=== PATIENT | female | born 1940 | race Caucasian/White ===

== ENCOUNTER → 2016-06-25 | Outpatient (CLI) | payer MEDICARE ==
--- NOTE | 2016-06-25 15:23 | US ---
EXAMINATION TYPE: US venous doppler duplex LE RT DATE OF EXAM: 06/25/2016 3:00 PM COMPARISON: Right lower extremity venous ultrasound June 07, 2015. 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 SIDE PERFORMED: Right TECHNIQUE: The lower extremity deep venous system is examined utilizing real time linear array sonog floresita with graded compression, doppler sonography and color-flow sonography. VESSELS IMAGED: External Iliac Vein (EIV) Common Femoral Vein Deep Femoral Vein Greater Saphenous Vein * Femoral Vein Popliteal Vein Small Saphenous Vein * Proximal Calf Veins (* superficial vessels) There appears to be chronic DVT from the proximal femoral v through the proximal calf v's. No flow se en in femoral v, thready flow seen in popliteal v and calf v. IMPRESSION: There is persistent significant thrombus in the right lower extremity favored chronic. Fi nding is improved from prior exam.
== END ==
LOC: RADUSWWP 14:31
PROVIDERS: ATTEND Internal Medicine Geriatric Medicine
DX: I82.501 Chronic embolism and thrombosis of unspecified deep veins of right lower extremity (principal)

== ENCOUNTER → 2016-12-16 | Outpatient (CLI) | payer MEDICARE ==
--- NOTE | 2016-12-16 15:23 | US ---
EXAMINATION TYPE: US venous doppler duplex LE RT DATE OF EXAM: 12/16/2016 2:51 PM COMPARISON: Right lower extremity venous ultrasound June 25, 2016 CLINICAL HISTORY: I82.409 ACUTE DVT OF LEG. Patient has h/o dvt in right leg and is currently on thin ners, pain behind knee SIDE PERFORMED: Right TECHNIQUE: The lower extremity deep venous system is examined utilizing real time linear array sonog floresita with graded compression, doppler sonography and color-flow sonography. VESSELS IMAGED: External Iliac Vein (EIV) Common Femoral Vein Deep Femoral Vein Greater Saphenous Vein * Femoral Vein Popliteal Vein Small Saphenous Vein * Proximal Calf Veins (* superficial vessels) Right Leg: Appears to have chronic within femoral vein , with thready flow seen and vessel not fully compressible, but no appearance of acute today no Cramer cyst seen today as noted previously, varicose vessel was noted within pop fossa IMPRESSION: There is persistent chronic thrombus in the superficial femoral vein with slight recanali zation since prior study. No popliteal cyst identified on current study.
== END | disposition home or self-care (01) ==
LOC: RADUSWWP 14:11
PROVIDERS: ATTEND Internal Medicine Geriatric Medicine
DX: I82.511 Chronic embolism and thrombosis of right femoral vein (principal)

== ENCOUNTER → 2017-07-22 | Outpatient (CLI) | payer MEDICARE ==
--- NOTE | 2017-07-22 16:30 | BD ---
EXAMINATION TYPE: MG DEXA axial skeleton. DATE OF EXAM: 07/22/2017 COMPARISON: NONE CLINICAL HISTORY: 77-year-old female osteoporosis Height: 5 FT 2 IN Weight: 246 FRAX RISK QUESTIONS: Secondary Osteoporosis: 3. Menopause before 45: YES RISK FACTORS HISTORY OF: Active: YES Postmenopausal woman: AGE 46 MEDICATIONS: Thyroid Medications: YES Which medication: SYNTHROID How Lon YEARS Additional Medications: SYNTHROID, LOSARTIN, XARELTO, LOVASTATIN, ATENOLOL, Additional History: EXAM MEASUREMENTS: Bone mineral densitometry was performed using the [employer] System. Bone mineral density as measured about the Lumbar spine is: ----- L1-L4(G/cm2): 1.385 T Score Values are as follows: ----- L2: 1.0 ----- L3: 2.7 ----- L4: 1.9 ----- L1-L4: 1.7 Bone mineral density has: INCREASED 2.4 % since study of: 2013 Bone mineral density about the R hip (g/cm2): 0.878 Bone mineral density about the L hip (g/cm2): 0.860 T Score values are as follows: -----R Neck: -1.1 -----L Neck: -1.3 -----R Total: -0.4 -----L Total: -0.1 Bone mineral density has: DECREASED -2.7 % since study of: 2013 IMPRESSION: Osteopenia (T Score between -2.5 and -1). There is slightly increased risk of fracture and the patient may be considered for treatment. Re-Screen 2-5 years. NOTE: T-SCORE=SD OF THE YOUNG ADULT MEAN.
--- NOTE | 2017-07-23 11:02 | MM ---
Reason for exam: screening (asymptomatic). Last mammogram was performed 2 years and 2 months ago. History: Patient is postmenopausal and has history of endometrial cancer at age 69. Family history of breast cancer in 3 sisters at age 50 and breast cancer in mother at age 50. Physical Findings: A clinical breast exam by your physician is recommended on an annual basis and results should be correlated with mammographic findings. MG 3D Screening Mammo W/Cad Bilateral CC and MLO view(s) were taken. Prior study comparison: May 16, 2015, bilateral MG screening mammo w CAD. May 11, 2014, bilateral MG screening mammo w CAD. There is a stable right central anterior depth mass back to 2014. No suspicious abnormality. No significant changes when compared with prior studies. ASSESSMENT: Benign, BI-RAD 2 RECOMMENDATION: Routine screening mammogram of both breasts in 1 year.
== END ==
LOC: RADMAMWWP 14:04
PROVIDERS: ATTEND Internal Medicine Geriatric Medicine
DX: Z12.31 Encounter for screening mammogram for malignant neoplasm of breast (principal); M81.0 Age-related osteoporosis without current pathological fracture; M85.80 Other specified disorders of bone density and structure, unspecified site
CPT/HCPCS: 77063; 77067; 77080

== ENCOUNTER 2017-09-22 21:45 | Emergency (ER) | payer MEDICARE ==
[2017-09-22 22:13] VITALS: BP 201/98; PULSE 53; RESP 18; TEMP 98.3
[2017-09-22] MEDS ORDERED: LIDOCAINE 1%/EPI 1:200,000 MPF 10 ML VIAL SQ STA (22:49)
[2017-09-22] MEDS ORDERED: GELATIN SPONGE,ABSORB (SMALL) 1 EACH SPONGE TOPICAL STA (22:50)
[2017-09-22] MEDS ORDERED: LIDOCAINE 1%-EPI 1:100,000 30 ML VIAL SQ STA (22:58)
--- NOTE | 2017-09-22 23:03 | ED ---
Skin/Abscess/FB HPI - General Chief complaint: Skin/Abscess/Foreign Body Stated complaint: Post OP /Bleeding/On blood thinner Time Seen by Provider: 09/22/17 22:26 Source: patient, RN notes reviewed Mode of arrival: ambulatory Limitations: no limitations - History of Present Illness Initial comments: This is a 77-year-old female who presents to the emergency department with chief complaint of postoperative bleeding. 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 She states that this was done by a barrel and receiver aligner , She states that at 9 PM this evening she noticed that she was bleeding through one of her dressings. Patient is concerned because she is on his rolled to 20 mg daily. She states that she did not take the medication yesterday or today. On arrival to the emergency department, a pressure dressing was placed. Denies fever, chills, chest pain, shortness of breath, abdominal pain, nausea or vomiting, constipation or diarrhea, dysuria or hematuria, numbness or tingling, headache or vision changes. - Related Data Home Medications Medication Instructions Recorded Confirmed Atenolol 50 mg PO HS 06/07/15 03/04/16 Levothyroxine Sodium [Synthroid] 50 mcg PO QAM 06/07/15 03/04/16 Losartan Potassium 100 mg PO QAM 06/07/15 03/04/16 Lovastatin [Mevacor] 20 mg PO HS 02/29/16 03/04/16 Rivaroxaban [Xarelto] 20 mg PO BID 03/04/16 03/04/16 Allergies Allergy/AdvReac Type Severity Reaction Status Date / Time No Known Allergies Allergy Verified 09/22/17 22:13 Review of Systems ROS Statement: Those systems with pertinent positive or pertinent negative responses have been documented in the HPI. ROS Other: All systems not noted in ROS Statement are negative. Past Medical History Past Medical History: Coronary Artery Disease (CAD), Cancer, Deep Vein Thrombosis (DVT), Eye Disorder, GERD/Reflux, Hyperlipidemia, Hypertension, Thyroid Disorder Additional Past Medical History / Comment(s): STATES FAMILY HEREDITARY DVT HX, uterine cancer 2009,hemorroids,dvt after hysterectomy,basal cell skin ca, psoriasis, shingles >10 years ago, hx of lymphedema post op, eneida cataracts History of Any Multi-Drug Resistant Organisms: None Reported Past Surgical History: Coronary Bypass/CABG, Heart Catheterization, Hysterectomy , Tubal Ligation Additional Past Surgical History / Comment(s): 2 vessel bypass,pilonidal cyst removed, pt stated had lymph node removed w/hysterectomy, dental implants rt lower side. Past Anesthesia/Blood Transfusion Reactions: No Reported Reaction Past Psychological History: No Psychological Hx Reported Smoking Status: Never smoker - Past Family History Mother Family Medical History: Cancer, Congestive Heart Failure (CHF), Deep Vein Thrombosis (DVT), Myocardial Infarction ([place]) Additional Family Medical History / Comment(s): breast cancer Father Family Medical History: Coronary Artery Disease (CAD), Myocardial Infarction ([place] ) Sister(s) Family Medical History: Cancer, Deep Vein Thrombosis (DVT) Additional Family Medical History / Comment(s): breast cancer X3 SISTERS, Brother(s) Family Medical History: Neurologic Disorder Daughter(s) Family Medical History: No Reported History Son(s) Family Medical History: No Reported History Additional Family Medical History / Comment(s): nephew in high school from General Exam - General Exam Comments Initial Comments: General: Awake and alert, well-developed; in no apparent distress. HEENT: Head atraumatic, normocephalic. Pupils are equal, round and reactive to light. Extraocular movements intact. Oropharynx moist without erythema or exudate. Neck: Supple. Normal ROM. Cardiovascular: Regular rate and rhythm. No murmurs, rubs or gallops. Chest symmetrical. Respiratory: Lungs clear to auscultation bilaterally. No wheezes, rales or rhonchi. Normal respiratory effort with no use of accessory muscles. Musculoskeletal: Normal ROM, no tenderness bilateral upper and lower extremities. Ambulating normally. Skin: Approximately 6.0 cm in length excisional site on the mid dorsal left forearm with intact sutures. At the most proximal end there is active bleeding. The second excisional site is covered with a dressing and there is no bleeding. Sensation is intact. Radial pulses are 2+ equal and palpable bilaterally. Neurological: Alert and oriented x3. CN II-XII grossly intact. Speech is fluent and answers are appropriate. No focal neuro deficits. Psychiatric: Normal mood and affect. No overt signs of depression or anxiety noted. Limitations: no limitations Course Vital Signs 09/22/17 22:10 Temperature 98.3 F Pulse Rate 53 L Respiratory 18 Rate Blood Pressure 201/98 O2 Sat by Pulse 99 Oximetry Medical Decision Making - Medical Decision Making This is a 77-year-old female who presented to the emergency department with chief complaint of postoperative bleeding. Patient had 2 squamous cell carcinoma excisions done by Dr. Langford earlier today. She noticed that she had bled through the dressing of one of the excisional sites at 9 PM this evening. Patient states that she is on Xarelto 20 mg but has not taken it for the past 2 days. A pressure dressing was applied when patient presented to the emergency department. This was removed and the repair was evaluated. There was active bleeding noted to the most proximal end of the excisional site repair. Lidocaine 1% with epi was injected into the site and Gelfoam was placed. A pressure dressing was placed. Patient no longer having active bleeding. Recommended the patient return to the emergency department if she does bleed through the dressing after discharge home. Recommended following up with her primary care provider and the barrel and receiver aligner who performed the procedure tomorrow. Patient's vital signs are stable and she is in no acute distress. She will be discharged home at this time. All questions were answered. This case was discussed with attending physician, Dr. Cifuentes. Disposition Clinical Impression: Postoperative bleeding from incision Disposition: HOME SELF-CARE Condition: Good Instructions: Postoperative Bleeding (ED) Additional Instructions: Please keep pressure dressing in place. Please return to the emergency department if you develop any further bleeding. Please follow up with Dr. Langford tomorrow morning. Please follow up with primary care provider within 1- 2 days. Return to emergency department if symptoms should worsen or any concerns arise. Is patient prescribed a controlled substance at d/c from ED?: No Referrals: Heri Zapata MD [Primary Care Provider] - 1-2 days Time of Disposition: 23:29
[2017-09-22] MEDS ORDERED: ACETAMINOPHEN TAB 500 MG TAB PO STA (23:15)
== END 2017-09-22 23:39 | disposition home or self-care (01) ==
LOC: EC 21:45
DX: L76.21 Postprocedural hemorrhage of skin and subcutaneous tissue following a dermatologic procedure (principal); I25.10 Atherosclerotic heart disease of native coronary artery without angina pectoris; E78.5 Hyperlipidemia, unspecified; I10 Essential (primary) hypertension; E07.9 Disorder of thyroid, unspecified; Z86.718 Personal history of other venous thrombosis and embolism; Z85.828 Personal history of other malignant neoplasm of skin; Z85.41 Personal history of malignant neoplasm of cervix uteri; Z95.1 Presence of aortocoronary bypass graft; Z98.890 Other specified postprocedural states; Z79.01 Long term (current) use of anticoagulants; Z79.899 Other long term (current) drug therapy
CPT/HCPCS: 99283

== ENCOUNTER 2017-10-01 22:43 | Inpatient (IN) | payer MEDICARE ==
[2017-10-01] MEDS ORDERED: ASPIRIN 81 MG PO STA (23:08)
[2017-10-01] MEDS ORDERED: SODIUM CHLORIDE 0.9% 500 ML IV STA (23:08)
[2017-10-01] MEDS ORDERED: HEPARIN SODIUM,PORCINE 5,000 UNIT/ML 1 ML VIAL IV STA (23:08)
[2017-10-01] MEDS ORDERED: DILTIAZEM DRIP BOLUS FROM BAG 1 MG SOLN IV ONE (23:09)
[2017-10-01] MEDS ORDERED: HEPARIN SOD,PORK IN 0.45% NACL 25,000 UNIT in 0.45% NACL 1 500ML.BAG IV SCH (23:15)
--- NOTE | 2017-10-01 23:15 | ED ---
General Adult HPI - General Chief complaint: Chest Pain Stated complaint: chest pain Source: patient Mode of arrival: wheelchair Limitations: no limitations - History of Present Illness Initial comments: Dictation was produced using [employer] dictation software. please excuse any grammatical, word or spelling errors. Chief Complaint: 77-year-old female with past medical history of coronary artery disease, dyslipidemia, the venous thrombosis presents with palpitations and chest pain. History of Present Illness: Patient reports that her symptoms began earlier today. She states that her symptoms began as palpitations that progressed chest pain. Patient denies any history of arrhythmia. Patient presents with who reports that they consume several wings and beer prior to coming to the hospital today. Patient reports that she is to take salt however. Secondary to a bleeding complication. The ROS documented in this emergency department record has been reviewed and confirmed by me. Those systems with pertinent positive or negative responses have been documented in the HPI. All other systems are other negative and/or noncontributory. - Related Data Home Medications Medication Instructions Recorded Confirmed Atenolol 50 mg PO HS 06/07/15 10/01/17 Levothyroxine Sodium [Synthroid] 50 mcg PO QAM 06/07/15 10/01/17 Losartan Potassium 100 mg PO QAM 06/07/15 10/01/17 Nitroglycerin Sl Tabs [Nitrostat] 0.4 mg SUBLINGUAL ONCE PRN 10/01/17 10/01/17 Allergies Allergy/AdvReac Type Severity Reaction Status Date / Time No Known Allergies Allergy Verified 10/01/17 23:04 Review of Systems ROS Statement: Those systems with pertinent positive or pertinent negative responses have been documented in the HPI. ROS Other: All systems not noted in ROS Statement are negative. Past Medical History Past Medical History: Coronary Artery Disease (CAD), Cancer, Deep Vein Thrombosis (DVT), Eye Disorder, GERD/Reflux, Hyperlipidemia, Hypertension, Thyroid Disorder Additional Past Medical History / Comment(s): STATES FAMILY HEREDITARY DVT HX, uterine cancer 2009,hemorroids,dvt after hysterectomy,basal cell skin ca, psoriasis, shingles >10 years ago, hx of lymphedema post op, eneida cataracts History of Any Multi-Drug Resistant Organisms: None Reported Past Surgical History: Coronary Bypass/CABG, Heart Catheterization, Hysterectomy , Tubal Ligation Additional Past Surgical History / Comment(s): 2 vessel bypass,pilonidal cyst removed, pt stated had lymph node removed w/hysterectomy, dental implants rt lower side. Past Anesthesia/Blood Transfusion Reactions: No Reported Reaction Past Psychological History: No Psychological Hx Reported Smoking Status: Never smoker - Past Family History Mother Family Medical History: Cancer, Congestive Heart Failure (CHF), Deep Vein Thrombosis (DVT), Myocardial Infarction ([place]) Additional Family Medical History / Comment(s): breast cancer Father Family Medical History: Coronary Artery Disease (CAD), Myocardial Infarction ([place] ) Sister(s) Family Medical History: Cancer, Deep Vein Thrombosis (DVT) Additional Family Medical History / Comment(s): breast cancer X3 SISTERS, Brother(s) Family Medical History: Neurologic Disorder Daughter(s) Family Medical History: No Reported History Son(s) Family Medical History: No Reported History Additional Family Medical History / Comment(s): nephew in high school from [place] General Exam - General Exam Comments Initial Comments: PHYSICAL EXAM: General Impression: Alert and oriented x3, not in acute distress HEENT: Normocephalic atraumatic, extra-ocular movements intact, pupils equal and reactive to light bilaterally, mucous membranes moist. Cardiovascular: Irregularly irregular rhythm Chest: Lungs clear to auscultation bilaterally, no rhonchi, no wheeze, no rales Abdomen: Bowel sounds present, abdomen soft, non-tender, non-distended, no organomegaly Musculoskeletal: Pulses present and equal in all extremities, no peripheral edema Motor: Power 5/5 bilaterally, no focal deficits noted Neurological: CN II-XII grossly intact, no focal motor or sensory deficits noted Skin: Intact with no visualized rashes Psych: Normal affect and mood Limitations: no limitations Course Vital Signs 10/01/17 10/01/17 10/01/17 22:48 23:03 23:39 Temperature 97.9 F Pulse Rate 65 94 Pulse Rate [ 105 H Train Dispatcher ] Respiratory 18 20 Rate Blood Pressure 148/91 142/73 O2 Sat by Pulse 98 98 Oximetry Medical Decision Making - Medical Decision Making ED course: 77 year old female with past medical history coronary artery disease presents with atrial fibrillation with rapid ventricular rate. Vital signs upon arrival shows blood pressure 148/91. Heart rate is 105. EKG is obtained showing A. fib with rapid ventricular rate. There is mild ischemic changes noted on EKG secondary to demand ischemia. Laboratory evaluation obtained. CBC unremarkable. Coag panel unremarkable. Metabolic panel shows mild elevated BUNs and a glucose of 110. Patient started on Cardizem and heparin. It isn't entirely clear when patient's symptoms began however likely that it started within 48 hours. Discussed patient case with primary care physician is willing to accept admission. Patient given aspirin. She'll be dispositioned to selective care. EKG Interpretation: A 12 lead EKG was obtained. It was interpreted by myself and attending physician. There is a P wave before every QRS complex. Rate is 138. Rhythm is A. fib with rapid ventricular rate, QRS 88, QTc 509. QT is not prolonged. No ST segment depression or elevation. Overall, this EKG is unremarkable - Lab Data Result diagrams: 10/01/17 22:58 10/01/17 22:58 Lab Results 10/01/17 10/01/17 10/01/17 Range/Units 22:58 22:58 22:58 WBC 7.6 (3.8-10.6) k/uL RBC 4.56 (3.80-5.40) m/uL Hgb 13.9 (11.4-16.0) gm/dL Hct 42.7 (34.0-46.0) % MCV 93.5 (80.0-100.0) fL MCH 30.5 (25.0-35.0) pg MCHC 32.6 (31.0-37.0) g/dL RDW 13.6 (11.5-15.5) % Plt Count 216 (150-450) k/uL Neutrophils % 63 % Lymphocytes % 24 % Monocytes % 8 % Eosinophils % 3 % Basophils % 1 % Neutrophils # 4.8 (1.3-7.7) k/uL Lymphocytes # 1.8 (1.0-4.8) k/uL Monocytes # 0.6 (0-1.0) k/uL Eosinophils # 0.2 (0-0.7) k/uL Basophils # 0.1 (0-0.2) k/uL PT (9.0-12.0) sec INR (<1.2) APTT (22.0-30.0) sec Sodium 138 (137-145) mmol/L Potassium 3.9 (3.5-5.1) mmol/L Chloride 105 (98-107) mmol/L Carbon Dioxide 29 (22-30) mmol/L Anion Gap 4 mmol/L BUN 23 H (7-17) mg/dL Creatinine 1.00 (0.52-1.04) mg/dL Est GFR (CKD-EPI)AfAm 64 (>60 ml/min/1.73 sqM) Est GFR (CKD-EPI)NonAf 55 (>60 ml/min/1.73 sqM) Glucose 110 H (74-99) mg/dL Calcium 9.4 (8.4-10.2) mg/dL Magnesium 2.0 (1.6-2.3) mg/dL Total Bilirubin 0.4 (0.2-1.3) mg/dL AST 26 (14-36) U/L ALT 29 (9-52) U/L Alkaline Phosphatase 62 (38-126) U/L Total Creatine Kinase 47 (30-135) U/L CK-MB (CK-2) 0.4 (0.0-2.4) ng/mL CK-MB (CK-2) Rel Index 0.9 Troponin I <0.012 (0.000-0.034) ng/mL Total Protein 6.2 L (6.3-8.2) g/dL Albumin 3.6 (3.5-5.0) g/dL 10/01/17 Range/Units 22:58 WBC (3.8-10.6) k/uL RBC (3.80-5.40) m/uL Hgb (11.4-16.0) gm/dL Hct (34.0-46.0) % MCV (80.0-100.0) fL MCH (25.0-35.0) pg MCHC (31.0-37.0) g/dL RDW (11.5-15.5) % Plt Count (150-450) k/uL Neutrophils % % Lymphocytes % % Monocytes % % Eosinophils % % Basophils % % Neutrophils # (1.3-7.7) k/uL Lymphocytes # (1.0-4.8) k/uL Monocytes # (0-1.0) k/uL Eosinophils # (0-0.7) k/uL Basophils # (0-0.2) k/uL PT 9.6 (9.0-12.0) sec INR 1.0 (<1.2) APTT 22.1 (22.0-30.0) sec Sodium (137-145) mmol/L Potassium (3.5-5.1) mmol/L Chloride (98-107) mmol/L Carbon Dioxide (22-30) mmol/L Anion Gap mmol/L BUN (7-17) mg/dL Creatinine (0.52-1.04) mg/dL Est GFR (CKD-EPI)AfAm (>60 ml/min/1.73 sqM) Est GFR (CKD-EPI)NonAf (>60 ml/min/1.73 sqM) Glucose (74-99) mg/dL Calcium (8.4-10.2) mg/dL Magnesium (1.6-2.3) mg/dL Total Bilirubin (0.2-1.3) mg/dL AST (14-36) U/L ALT (9-52) U/L Alkaline Phosphatase (38-126) U/L Total Creatine Kinase (30-135) U/L CK-MB (CK-2) (0.0-2.4) ng/mL CK-MB (CK-2) Rel Index Troponin I (0.000-0.034) ng/mL Total Protein (6.3-8.2) g/dL Albumin (3.5-5.0) g/dL Disposition Clinical Impression: Atrial fibrillation with rapid ventricular response Disposition: ADMITTED IP TO THIS [facility] Condition: Fair Referrals: Heri Zapata MD [Primary Care Provider] - 1-2 days Decision Time: 00:23
[2017-10-01 23:17] LABS: Basophils # (A) 0.1 k/uL (0-0.2); Basophils % (A) 1 %; Eosinophils # (A) 0.2 k/uL (0-0.7); Eosinophils % (A) 3 %; HCT 42.7 % (34.0-46.0); HGB 13.9 gm/dL (11.4-16.0); Lymphocytes # (A) 1.8 k/uL (1.0-4.8); Lymphocytes % (A) 24 %; MCH 30.5 pg (25.0-35.0); MCHC 32.6 g/dL (31.0-37.0); MCV 93.5 fL (80.0-100.0); Mean Platelet Volume 7.2; Monocytes # (A) 0.6 k/uL (0-1.0); Monocytes % (A) 8 %; Neutrophils # (A) 4.8 k/uL (1.3-7.7); Neutrophils % (A) 63 %; Platelet Count 216 k/uL (150-450); RBC 4.56 m/uL (3.80-5.40); RDW 13.6 % (11.5-15.5); WBC 7.6 k/uL (3.8-10.6)
[2017-10-01 23:25] LABS: Partial Thromboplastin Time 22.1 sec (22.0-30.0); Prothrombin Time 9.6 sec (9.0-12.0)
[2017-10-01 23:26] LABS: Albumin 3.6 g/dL (3.5-5.0); Calcium 9.4 mg/dL (8.4-10.2); Potassium 3.9 mmol/L (3.5-5.1); Total Bilirubin 0.4 mg/dL (0.2-1.3); Total Protein 6.2 g/dL (6.3-8.2)
[2017-10-01 23:29] LABS: Creatine Kinase 47 U/L (30-135)
[2017-10-01] MEDS: DILTIAZEM 50 MG in SODIUM CHLORIDE 0.9% 40 ML IV SCH (23:35)
[2017-10-01 23:42] LABS: Creatine Kinase MB 0.4 ng/mL (0.0-2.4); Troponin I <0.012 ng/mL (0.000-0.034)
[2017-10-02] MEDS ORDERED: NALOXONE 0.4 MG/ML 1 ML VIAL IV PRN (00:16)
--- NOTE | 2017-10-02 00:33 | XR ---
EXAMINATION TYPE: XR chest 2V DATE OF EXAM: 10/02/2017 COMPARISON: 02/26/2010 HISTORY: Chest pain TECHNIQUE: Frontal and lateral views of the chest are obtained. FINDINGS: There is no heart failure nor confluent pneumonic infiltrate. Costophrenic angles are yissel r. There are sternal wires. There are chest leads. IMPRESSION: No active cardiopulmonary disease. No change.
[2017-10-02 01:10] VITALS: BMI 45.4
[2017-10-02] MEDS: DILTIAZEM 50 MG in SODIUM CHLORIDE 0.9% 40 ML IV SCH (08:13)
[2017-10-02] MEDS: LEVOTHYROXINE 50 MCG TAB PO SCH (10:37)
[2017-10-02] MEDS: LOSARTAN 50 MG TAB PO SCH (10:37)
--- NOTE | 2017-10-02 11:19 | ECHOF ---
Referral Reason:AF w/RVR MEASUREMENTS -------- HEIGHT: 157.5 cm WEIGHT: 112.5 kg BP: 142/85 RVIDd: 3.0 cm (< 3.3) IVSd: 1.0 cm (0.6 - 1.1) LVIDd: 4.9 cm (3.9 - 5.3) LVPWd: 0.9 cm (0.6 - 1.1) IVSs: 1.6 cm LVIDs: 2.6 cm LVPWs: 1.6 cm LAESV Index (A-L): 30.86 ml/m Ao Diam: 3.0 cm (2.0 - 3.7) AV Cusp: 2.0 cm (1.5 - 2.6) LA Diam: 4.6 cm (2.7 - 3.8) EPSS: 0.3 cm MV E Britton: 1.35 m/s MV DecT: 179 ms MV A Britton: 0.33 m/s MV E/A Ratio: 4.03 RAP: 5.00 mmHg RVSP: 44.61 mmHg MV EF SLOPE: 145.00 mm/s (70 - 150) MV EXCURSION: 1.87 cm (> 18.000) FINDINGS -------- Resting bradycardia (HR<60bpm). This was a technically adequate study. The left ventricular size is normal. Left ventricular wall thickness is normal. Overall left vent ricular systolic function is normal with, an EF between 55 - 60 %. The right ventricle is normal in size and function. LA is midly dilated 29-33ml/m2. RA appears enlarged. Aortic valve is trileaflet and is mildly thickened. There is no evidence of aortic regurgitation. There is no evidence of aortic stenosis. Mild mitral annular calcification present. Mild mitral regurgitation is present. Wsby-jr-pxelrjqm tricuspid regurgitation present. There is mild pulmonary hypertension. The right ventricular systolic pressure, as measured by Doppler, is 44.61mmHg. Trace/mild (physiologic) pulmonic regurgitation. The aortic root size is normal. Normal inferior vena cava with normal inspiratory collapse consistent with estimated right atrial pre ssure of 5 mmHg. There is no pericardial effusion. CONCLUSIONS -------- 1. Resting bradycardia (HR<60bpm). 2. This was a technically adequate study. 3. The left ventricular size is normal. 4. Left ventricular wall thickness is normal. 5. Overall left ventricular systolic function is normal with, an EF between 55 - 60 %. 6. LA is midly dilated 29-33ml/m2. 7. RA appears enlarged. 8. Aortic valve is trileaflet and is mildly thickened. 9. Mild mitral annular calcification present. 10. Mild mitral regurgitation is present. 11. Hvri-rg-zrafzise tricuspid regurgitation present. 12. There is mild pulmonary hypertension. 13. The right ventricular systolic pressure, as measured by Doppler, is 44.61mmHg. 14. Trace/mild (physiologic) pulmonic regurgitation. 15. The aortic root size is normal. 16. There is no pericardial effusion. FIELD INSTALLER: Jose Daniel Haas RDCS
--- NOTE | 2017-10-02 11:38 | P.CRDCN ---
History of Present Illness Consult date: 10/02/17 Requesting physician: Heri Zapata Reason for Consult (text): AF w/RVR Chief complaint: palpitations, chest discomfort History of present illness: This is a pleasant 77-year-old female patient who follows with Dr. BIN Aguirre in the office. She has a history of hypertension, dyslipidemia, recurrent DVTs and was previously on Xarelto, previous CABG with a vein graft to the diagonal and GUILLEN to the LAD. Most recent cardiac catheterization from February 2016 showed a right dominant system free of significant disease, left main free of significant disease, circumflex free of significant disease with a totally occluded LAD and diagonal with widely pain vein grafts to the diagonal and GUILLEN to the LAD. Presented to the emergency department with complaints of palpitations that resulted in chest discomfort. She felt her heart racing and noticed some shortness of breath as well. EKG on admission showed atrial fibrillation with rapid ventricular response, PVCs and diffuse ST-T wave abnormalities. According to the patient she was previously on anticoagulation which she stopped following skin cancer removal from her left forearm. Apparently she had some what she says was significant bleeding postoperatively. Laboratory values show a normal CBC, normal electrolytes, BUN 23 and creatinine of 1.0. Troponin was negative 1. Patient is currently in sinus bradycardia with heart rate in the 50s. Blood pressure is running 140s to 160s over 80s and 90s. Upon examination, patient is resting comfortably in bed. She denies further complaints of palpitations or chest discomfort. She denies current complaint of shortness of breath. Denies any dizziness, lightheadedness or syncope. She does feel she has some swelling in her feet. 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), psoriasis, shingles >10 years ago, hx of lymphedema post op, eneida cataracts History of Any Multi-Drug Resistant Organisms: None Reported Past Surgical History: Coronary Bypass/CABG, Heart Catheterization, Hysterectomy , Tubal Ligation Additional Past Surgical History / Comment(s): 2 vessel bypass 2004, pilonidal cyst removed, pt stated had lymph node removed w/hysterectomy, dental implants rt lower side Past Anesthesia/Blood Transfusion Reactions: No Reported Reaction Past Psychological History: No Psychological Hx Reported Smoking Status: Never smoker Past Alcohol Use History: Occasional Additional Past Alcohol Use History / Comment(s): DRINKS 1 BOTTLE OF WINE PER WEEK. Past Drug Use History: None Reported - Past Family History Mother Family Medical History: Cancer, Congestive Heart Failure (CHF), Deep Vein Thrombosis (DVT), Myocardial Infarction (CA) Additional Family Medical History / Comment(s): breast cancer Father Family Medical History: Coronary Artery Disease (CAD), Myocardial Infarction ([place] ) Sister(s) Family Medical History: Cancer, Deep Vein Thrombosis (DVT) Additional Family Medical History / Comment(s): breast cancer X3 SISTERS Brother(s) Family Medical History: Neurologic Disorder Daughter(s) Family Medical History: No Reported History Son(s) Family Medical History: No Reported History Additional Family Medical History / Comment(s): nephew in high school from [place] Medications and Allergies Home Medications Medication Instructions Recorded Confirmed Type Atenolol 50 mg PO HS 06/07/15 10/01/17 History Levothyroxine Sodium [Synthroid] 50 mcg PO QAM 06/07/15 10/01/17 History Losartan Potassium 100 mg PO QAM 06/07/15 10/01/17 History Nitroglycerin Sl Tabs [Nitrostat] 0.4 mg SUBLINGUAL ONCE PRN 10/01/17 10/01/17 History Allergies Allergy/AdvReac Type Severity Reaction Status Date / Time No Known Allergies Allergy Verified 10/01/17 23:04 Physical Exam Vitals: Vital Signs Temp Pulse Pulse Resp BP BP Pulse Ox 10/02/17 07:50 97.8 F 55 L 18 168/92 98 10/02/17 04:00 54 L 16 142/85 97 10/02/17 01:28 84 18 10/02/17 00:41 84 18 141/78 96 10/02/17 00:38 97.6 F 84 16 161/92 97 10/01/17 23:39 94 20 142/73 98 10/01/17 23:03 105 H 10/01/17 22:48 97.9 F 65 18 148/91 98 Intake and Output 10/01/17 10/02/17 10/02/17 22:59 06:59 14:59 Intake Total 754.772 0 Balance 754.772 0 Intake: Amount of Fluid Infused ( 600 ml) Intake, IV Titration 154.772 Amount Diltiazem 50 mg In Sodium 10.583 Chloride 0.9% 40 ml @ 5 MG/HR 5 mls/hr IV .Q10H ANDREW Rx#:[id number] Heparin Sod,Pork in 0.45% 144.189 NaCl 25,000 unit In 0.45 % NaCl 1 500ml.bag @ 9 UNITS/KG/HR 20.16 mls/hr IV .Q24H ANDREW Rx#: [id number] Oral 0 Other: Voiding Method Toilet # Voids 1 Weight 112.037 kg 112.7 kg PHYSICAL EXAMINATION: HEENT: Head is atraumatic, normocephalic. Pupils equal, round. Neck is supple. There is no elevated jugular venous pressure. HEART EXAMINATION: Heart sounds regular, S1 and S2 normal. No murmur or gallop heard. CHEST EXAMINATION: Lungs are clear to auscultation and precussion. No chest wall tenderness is noted on palpation or with deep breathing. ABDOMEN: Soft, obese, nontender. Bowel sounds are heard. No organomegaly noted. EXTREMITIES: 2+ peripheral pulses with no evidence of peripheral edema and no calf tenderness noted. Varicosities noted bilateral lower legs. NEUROLOGIC patient is awake, alert and oriented x3. . Results 10/01/17 22:58 10/01/17 22:58 Cardiac Enzymes 10/01/17 10/01/17 Range/Units 22:58 22:58 AST 26 (14-36) U/L CK-MB (CK-2) 0.4 (0.0-2.4) ng/mL Troponin I <0.012 (0.000-0.034) ng/mL Coagulation 10/01/17 10/02/17 Range/Units 22:58 06:18 PT 9.6 (9.0-12.0) sec APTT 22.1 39.3 H (22.0-30.0) sec CBC 10/01/17 Range/Units 22:58 WBC 7.6 (3.8-10.6) k/uL RBC 4.56 (3.80-5.40) m/uL Hgb 13.9 (11.4-16.0) gm/dL Hct 42.7 (34.0-46.0) % Plt Count 216 (150-450) k/uL Comprehensive Metabolic Panel 10/01/17 Range/Units 22:58 Sodium 138 (137-145) mmol/L Potassium 3.9 (3.5-5.1) mmol/L Chloride 105 (98-107) mmol/L Carbon Dioxide 29 (22-30) mmol/L BUN 23 H (7-17) mg/dL Creatinine 1.00 (0.52-1.04) mg/dL Glucose 110 H (74-99) mg/dL Calcium 9.4 (8.4-10.2) mg/dL AST 26 (14-36) U/L ALT 29 (9-52) U/L Alkaline Phosphatase 62 (38-126) U/L Total Protein 6.2 L (6.3-8.2) g/dL Albumin 3.6 (3.5-5.0) g/dL Current Medications Generic Name Dose Route Start Last Admin Trade Name Freq PRN Reason Stop Dose Admin Heparin Sodium/Sodium Chloride 500 mls @ 20.16 mls/hr 10/01/17 23:15 06:43 25,000 unit/ Sodium Chloride IV 12 units/kg/hr .Q24H ANDREW 26.88 mls/hr Titration Protocol 9 UNITS/KG/HR Diltiazem HCl 50 mg/ Sodium 50 mls @ 5 mls/hr 10/01/17 23:15 10/02/17 08:13 Chloride IV Not Given .Q10H ANDREW 5 MG/HR Naloxone HCl 0.2 mg 10/02/17 00:16 Narcan IV Q2M PRN Opioid Reversal Intake and Output 10/01/17 10/02/17 10/02/17 22:59 06:59 14:59 Intake Total 754.772 0 Balance 754.772 0 Intake: Amount of Fluid Infused ( 600 ml) Intake, IV Titration 154.772 Amount Diltiazem 50 mg In Sodium 10.583 Chloride 0.9% 40 ml @ 5 MG/HR 5 mls/hr IV .Q10H ANDREW Rx#:[id number] Heparin Sod,Pork in 0.45% 144.189 NaCl 25,000 unit In 0.45 % NaCl 1 500ml.bag @ 9 UNITS/KG/HR 20.16 mls/hr IV .Q24H ANDREW Rx#: [id number] Oral 0 Other: Voiding Method Toilet # Voids 1 Weight 112.037 kg 112.7 kg 10/01/17 22:58 10/01/17 22:58 EKG Interpretations (text) Initial EKG showed atrial fibrillation with rapid ventricular response with PVCs and diffuse ST-T wave abnormalities subsequent EKG showed sinus bradycardia with nonspecific ST abnormalities Assessment and Plan Assessment: #1 paroxysmal atrial fibrillation with rapid ventricular response, currently maintaining sinus rhythm #2 recurrent DVTs previously on Xarelto which she stopped on September 22 #3 coronary artery disease with previous CABG and clear cath in 2016 #4 dyslipidemia #5 hypertension #6 gastroesophageal reflux disease #7 skin cancer with recent resection Plan: From rehabilitation supervisor perspective, we will obtain a 2-D echo with Doppler. We will likely resume Xarelto. We will resume losartan 100 mg by mouth daily, Levothyroxine 50 g by mouth daily, atenolol 50 mg by mouth daily at bedtime. We will obtain a TSH. Depending on results of echo patient may be able to be discharged today and follow-up with Dr. BIN Aguirre on October 17. VETERINARY PRACTITIONER note has been reviewed, I agree with a documented findings and plan of care. Patient was seen and examined.
[2017-10-02 12:10] LABS: T4, Free (Free Thyroxine) 1.31 ng/dL (0.78-2.19)
--- NOTE | 2017-10-02 13:31 | P.HPIM ---
History of Present Illness H&P Date: 10/02/17 Chief Complaint: A. fib with RVR, chest pain, CAD, history of DVT, hypertension , hyperlipide 77-year-old female with mild obesity who at seen in the office for the last few years who seen Dr. BIN iglesias cardiology in cardiology office on regular basis had history of hypertension, hyperlipidemia and recurrent DVT he has been on Xarelto for long time. Patient also had previous history of CAD post CABG of 2 vessel years ago had recent heart catheter back in February 2016 free from any significant blockage or disease. 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 Her symptoms were persistent ended up coming to the emergency department at [facility] her pulse rate through her heart monitor was running between 140 and 160 patient was diagnosed with A. fib with RVR was started on Cardizem drip and heparin drip and admitted to the hospital her CK with troponin was negative and patient has been on Xarelto all along until last week when developed to have slight with increased bleeding from the left arm through a smaller injury had to stop the medication for a few days. Review of Systems CONSTITUTIONAL: Well-developed no acute respiratory distress. EYES: No icterus sclerae, no conjunctivitis. EARS, NOSE, MOUTH, THROAT, and FACE: No sore throat, lymphadenopathy, carotid bruits or deformity. RESPIRATORY: Positive shortness of breath and dyspnea.. CARDIOVASCULAR: Positive chest pain, positive palpitation, positive shortness of breath and dyspnea. GASTROINTESTINAL: No Abd pain, Nausea or vomiting, no Diarrhea or constipation, No GI Bleed, no distention or masses. GENITOURINARY: Negative for Hematuria or UTI, no kidney stones. INTEGUMENT/BREAST: Negative for any muscular injury with mild osteoarthritis.. HEMATOLOGIC/LYMPHATIC: Negative for bleed or purpura. MUSCULOSKELTAL: Negative for Myalgia or arthralgia. NEURLOGICAL: No LOC, Sz or syncope, blurred vision dizziness or abnormality.. BEHAVIORAL/PSYCH: Negative. ENDOCRINE: Negative. 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), psoriasis, shingles >10 years ago, hx of lymphedema post op, eneida cataracts History of Any Multi-Drug Resistant Organisms: None Reported Past Surgical History: Coronary Bypass/CABG, Heart Catheterization, Hysterectomy , Tubal Ligation Additional Past Surgical History / Comment(s): 2 vessel bypass 2004, pilonidal cyst removed, pt stated had lymph node removed w/hysterectomy, dental implants rt lower side Past Anesthesia/Blood Transfusion Reactions: No Reported Reaction Past Psychological History: No Psychological Hx Reported Smoking Status: Never smoker Past Alcohol Use History: Occasional Additional Past Alcohol Use History / Comment(s): DRINKS 1 BOTTLE OF WINE PER WEEK. Past Drug Use History: None Reported - Past Family History Mother Family Medical History: Cancer, Congestive Heart Failure (CHF), Deep Vein Thrombosis (DVT), Myocardial Infarction ([place]) Additional Family Medical History / Comment(s): breast cancer Father Family Medical History: Coronary Artery Disease (CAD), Myocardial Infarction ([place] ) Sister(s) Family Medical History: Cancer, Deep Vein Thrombosis (DVT) Additional Family Medical History / Comment(s): breast cancer X3 SISTERS Brother(s) Family Medical History: Neurologic Disorder Daughter(s) Family Medical History: No Reported History Son(s) Family Medical History: No Reported History Additional Family Medical History / Comment(s): nephew in high school from [place] Medications and Allergies Home Medications Medication Instructions Recorded Confirmed Type Atenolol 50 mg PO HS 06/07/15 10/01/17 History Levothyroxine Sodium [Synthroid] 50 mcg PO QAM 06/07/15 10/01/17 History Losartan Potassium 100 mg PO QAM 06/07/15 10/01/17 History Nitroglycerin Sl Tabs [Nitrostat] 0.4 mg SUBLINGUAL ONCE PRN 10/01/17 10/01/17 History Allergies Allergy/AdvReac Type Severity Reaction Status Date / Time No Known Allergies Allergy Verified 10/01/17 23:04 Physical Exam Vitals: Vital Signs Temp Pulse Pulse Resp BP BP Pulse Ox 10/02/17 11:00 96.3 F L 57 L 18 175/87 97 10/02/17 07:50 97.8 F 55 L 18 168/92 98 10/02/17 04:00 54 L 16 142/85 97 10/02/17 01:28 84 18 10/02/17 00:41 84 18 141/78 96 10/02/17 00:38 97.6 F 84 16 161/92 97 10/01/17 23:39 94 20 142/73 98 10/01/17 23:03 105 H 10/01/17 22:48 97.9 F 65 18 148/91 98 Intake and Output 10/01/17 10/02/17 10/02/17 22:59 06:59 14:59 Intake Total 754.772 100 Balance 754.772 100 Intake: Amount of Fluid Infused ( 600 ml) Intake, IV Titration 154.772 100 Amount Diltiazem 50 mg In Sodium 10.583 Chloride 0.9% 40 ml @ 5 MG/HR 5 mls/hr IV .Q10H ANDREW Rx#:[id number] Heparin Sod,Pork in 0.45% 144.189 NaCl 25,000 unit In 0.45 % NaCl 1 500ml.bag @ 9 UNITS/KG/HR 20.16 mls/hr IV .Q24H ANDREW Rx#: [id number] Sodium Chloride 0.9% 500 100 ml @ 999 mls/hr IV .Q31M STA Rx#:[id number] Oral 0 Other: Voiding Method Toilet Toilet # Voids 1 Weight 112.037 kg 112.7 kg General Appearance: Alert, cooperative, no distress, appears stated age, obese. Neck HEENT: Supple, no lymphadenopathy, no thyroid enlargement, no carotid bruits. Lungs: Clear to auscultation without crackles or wheezes no rhonchi, no deformity. Chest Wall: Chest wall normal expansion with deep inspiration no tenderness and no deformity was found on exam, no costochondral pain or discomfort. Heart: Irregular rhythm and rate S1-S2 positive S3 +5 cm JVD with PVCs with systolic murmur.. Back: Symmetric, no curvature, ROM normal, no CVA tenderness. Abdomen: Soft, non-tender, bowel sounds active all four quadrants, no masses, no organomegaly. Extremities: Trace edema positive varicose vein with decreased pulse in both side. Pulses: 2+ and symmetric. Skin: Skin color, texture, tugor normal, no rashes or lesions. Neurologic: Alert oriented x3 cranial nerves II through XII intact, no motor deficit, no abnormal balance or gait. Results CBC & Chem 7: 10/01/17 22:58 10/01/17 22:58 Labs: Abnormal Lab Results - Last 24 Hours (Table) 10/01/17 10/02/17 10/02/17 Range/Units 22:58 06:18 06:18 APTT 39.3 H (22.0-30.0) sec BUN 23 H (7-17) mg/dL Glucose 110 H (74-99) mg/dL Total Protein 6.2 L (6.3-8.2) g/dL TSH 6.120 H (0.465-4.680) mIU/L Thrombosis Risk Factor Assmnt - DVT/VTE Prophylaxis DVT/VTE Prophylaxis: Pharmacologic Prophylaxis ordered, Mechanical Prophylaxis ordered - Choose All That Apply Any of the Below Risk Factors Present?: Yes Each Factor Represents 1 point: Medical pt on bed rest, Obesity (BMI >25), Swollen legs (current) Other Risk Factors: Yes Each Risk Factor Represents 3 Points: Age 75 years or older, Family history of DVT/PE, History of DVT/PE Other congenital or acquired thrombophilia - If yes, enter type in comment: No Thrombosis Risk Factor Assessment Total Risk Factor Score: 12 Thrombosis Risk Factor Assessment Level: High Risk Assessment and Plan Plan: 1 A. fib with RVR: Patient had Cardizem drip and back on anticoagulation, will consult cardiology, titrate her beta zaid slightly and if needed Cardizem orally can be done. If recurrent or not control with the current plan patient might benefit from amiodarone as a next step. 2 recurrent anginal chest pain: Have been on the peak time of her A. fib with RVR with the current symptoms patient CK with troponin 3 will be done, repeat EKG, echocardiogram, and consult cardiology despite the loss heart cath in 2016 was negative patient might benefit from going at least for nuclear stress test. 3 recurrent DVT: Patient is on Xarelto lifetime she stopped medication on September 22 because of the arm injury in the bleed medication will be start today. 4 Hypertension: Remain on losartan 100 mg a day and atenolol 50 mg atenolol might be up slightly to total of 75 mg a day. 5 hyperlipidemia: Has been off statin because of side effect. 6 hypothyroidism: Has been on levothyroxine 50 g daily continue medication. 7 DVT prophylaxis: Patient will be on Xarelto. 8 GI prophylaxis: We'll start patient on Pepcid 20 mg daily. CODE STATUS: Full code. Admit patient to inpatient status for more than 2 nights.
[2017-10-02] MEDS ORDERED: RIVAROXABAN 20 MG TAB PO SCH (17:30)
[2017-10-02 20:20] VITALS: RESP 16
[2017-10-02] MEDS ORDERED: ATENOLOL 50 MG TAB PO SCH (21:00)
[2017-10-03] MEDS: LEVOTHYROXINE 50 MCG TAB PO SCH (05:57)
[2017-10-03 06:27] LABS: Basophils # (A) 0.1 k/uL (0-0.2); Basophils % (A) 1 %; Eosinophils # (A) 0.2 k/uL (0-0.7); Eosinophils % (A) 3 %; HCT 40.7 % (34.0-46.0); HGB 13.1 gm/dL (11.4-16.0); Lymphocytes # (A) 1.2 k/uL (1.0-4.8); Lymphocytes % (A) 21 %; MCH 30.5 pg (25.0-35.0); MCHC 32.1 g/dL (31.0-37.0); MCV 94.9 fL (80.0-100.0); Mean Platelet Volume 7.5; Monocytes # (A) 0.5 k/uL (0-1.0); Monocytes % (A) 9 %; Neutrophils # (A) 3.5 k/uL (1.3-7.7); Neutrophils % (A) 64 %; Platelet Count 201 k/uL (150-450); RBC 4.28 m/uL (3.80-5.40); RDW 13.6 % (11.5-15.5); WBC 5.5 k/uL (3.8-10.6)
[2017-10-03 06:46] LABS: Potassium 4.2 mmol/L (3.5-5.1)
[2017-10-03] MEDS: LOSARTAN 50 MG TAB PO SCH (08:30)
[2017-10-03 11:06] VITALS: BP 155/86; PULSE 49; TEMP 98.4
--- NOTE | 2017-10-03 13:58 | P.DS ---
Providers Date of admission: 10/02/17 00:17 Expected date of discharge: 10/03/17 Attending physician: Heri Zapata Consults: 10/02/17 00:20 Consult Physician Routine Consulting Provider: Glenda Aguirre Consult Reason/Comments: afib rvr Do you want consulting provider notified?: Yes, Notify in am Primary care physician: [facility] Course: 77-year-old female with mild obesity who at seen in the office for the last few years who seen Dr. BIN iglesias cardiology in cardiology office on regular basis had history of hypertension, hyperlipidemia and recurrent DVT he has been on Xarelto for long time. Patient also had previous history of CAD post CABG of 2 vessel years ago had recent heart catheter back in February 2016 free from any significant blockage or disease. 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 Her symptoms were persistent ended up coming to the emergency department at [facility] her pulse rate through her heart monitor was running between 140 and 160 patient was diagnosed with A. fib with RVR was started on Cardizem drip and heparin drip and admitted to the hospital her CK with troponin was negative and patient has been on Xarelto all along until last week when developed to have slight with increased bleeding from the left arm through a smaller injury had to stop the medication for a few days. 10/03: Patient has been in a sinus bradycardia since shortly after admission. Cardizem drip was discontinued and patient was resumed back on atenolol. Echocardiogram reveals EF of 55-60%, LAD mildly dilated, mild mitral regurgitation, moderate tricuspid regurgitation, mild pulmonary hypertension. Cardiology is resume the patient back on Xarelto. Cardiology has cleared her for discharge with plan for follow-up with Dr. BIN iglesias on October 17. Discharge diagnoses: 1 A. fib with RVR with paroxysmal atrial fibrillation 2 recurrent anginal chest pain secondary to A. fib with RVR 3 recurrent DVT 4 Hypertension 5 hyperlipidemia 6 hypothyroidism Discharge plan: Return home Impression and plan of care have been directed as dictated by the signing physician. Kathleen Hollins nurse practitioner acting as scribe for signing physician. Patient Condition at Discharge: Good Plan - Discharge Summary Discharge Rx Participant: No New Discharge Prescriptions: New Atenolol [Tenormin] 50 mg PO HS #60 tab Rivaroxaban [Xarelto] 20 mg PO W/SUPPER #30 tab Continue Losartan Potassium 100 mg PO QAM Levothyroxine Sodium [Synthroid] 50 mcg PO QAM Nitroglycerin Sl Tabs [Nitrostat] 0.4 mg SUBLINGUAL ONCE PRN PRN Reason: Chest Pain Discontinued Atenolol 50 mg PO HS Discharge Medication List Levothyroxine Sodium [Synthroid] 50 mcg PO QAM 06/07/15 [History] Losartan Potassium 100 mg PO QAM 06/07/15 [History] Nitroglycerin Sl Tabs [Nitrostat] 0.4 mg SUBLINGUAL ONCE PRN 10/01/17 [History] Atenolol [Tenormin] 50 mg PO HS #60 tab 10/03/17 [Rx] Rivaroxaban [Xarelto] 20 mg PO W/SUPPER #30 tab 10/03/17 [Rx] Follow up Appointment(s)/Referral(s): Glenda Aguirre MD [STAFF PHYSICIAN] - 10/17/17 1:45 pm (Friday) Heri Zapata MD [Primary Care Provider] - 10/09/17 11:15 am () Patient Instructions/Handouts: A-fib (Atrial Fibrillation) (DC), Safe Use of Anticoagulants (DC) Discharge Disposition: HOME SELF-CARE
== END 2017-10-03 11:16 | disposition home or self-care (01) | DRG 309 ==
LOC: EC 22:43 → 6SEL 10-02 00:17
PROVIDERS: ADMIT Internal Medicine Geriatric Medicine; ATTEND Internal Medicine Geriatric Medicine
DX: I48.0 Paroxysmal atrial fibrillation (principal); Z68.42 Body mass index [BMI] 45.0-49.9, adult; E03.9 Hypothyroidism, unspecified; E78.5 Hyperlipidemia, unspecified; I08.1 Rheumatic disorders of both mitral and tricuspid valves; I10 Essential (primary) hypertension; I25.119 Atherosclerotic heart disease of native coronary artery with unspecified angina pectoris; I27.20 Pulmonary hypertension, unspecified; I49.3 Ventricular premature depolarization; K21.9 Gastro-esophageal reflux disease without esophagitis; E66.9 Obesity, unspecified; H26.9 Unspecified cataract; L40.9 Psoriasis, unspecified; K64.9 Unspecified hemorrhoids; I83.93 Asymptomatic varicose veins of bilateral lower extremities; Z79.899 Other long term (current) drug therapy; Z95.1 Presence of aortocoronary bypass graft; Z90.710 Acquired absence of both cervix and uterus; Z86.718 Personal history of other venous thrombosis and embolism; Z85.828 Personal history of other malignant neoplasm of skin; Z85.42 Personal history of malignant neoplasm of other parts of uterus; Z98.51 Tubal ligation status; Z80.3 Family history of malignant neoplasm of breast; Z82.49 Family history of ischemic heart disease and other diseases of the circulatory system; Z82.0 Family history of epilepsy and other diseases of the nervous system
CPT/HCPCS: 36415; 71046; 80048; 80053; 82550; 82553; 83735; 84439; 84443; 84484; 85025; 85610; 85730; 93005; 93306; 96365; 96368; 96376; 99285

== ENCOUNTER → 2018-10-15 | Outpatient (CLI) | payer MEDICARE ==
--- NOTE | 2018-10-15 13:09 | CONS ---
CONSULTATION DATE OF SERVICE: 10/15/2018 A 78-year-old lady who has been evaluated in the [facility] for possible obstructive sleep apnea-hypopnea syndrome. HISTORY OF PRESENT ILLNESS/SLEEP WAKE EVALUATION: Patient's usual sleep schedule from 9 to 10 p.m. until 6 or 7 a.m. Sometimes she has problem with falling asleep, has TV set in bedroom, prefers to sleep on the side position. She snores, wakes up from sleep 2 times with nocturia. No history of hypnagogic hallucinations, sleep paralysis or cataplexy. [place] Sleepiness Scale today is 3. PAST MEDICAL HISTORY: Positive for coronary artery disease, hypertension, hyperlipidemia, right leg DVT. PAST SURGICAL HISTORY: CABG, total hysterectomy. MEDICATIONS: Xarelto, losartan, potassium supplement, furosemide, atorvastatin, atenolol. SOCIAL HISTORY: Negative for smoking. Alcohol consumption, wine daily with dinner. FAMILY HISTORY: Hypertension, heart problems, stroke, emphysema, pneumonia, cancer, liver problems, diabetes, dementia. REVIEW OF SYSTEMS: Multiple awakenings from sleep, sometimes sleepiness during the day. Patient may take naps at 2 p.m. PHYSICAL EXAM: lady without distress, BP 149/66, HR 56, RR 16, height 5 foot 2 inches, weight 242 pounds. Body mass index 44.2, temperature 97.5, oxygen saturation at room air 99%. HEENT: Oropharynx, low position of soft palate. Mallampati 4. NECK: 15-1/4 inch inch in circumference, restriction of nasal breathing on the left side. ABDOMEN: Obese. LUNGS Clear to percussion and to auscultation. Good air exchange. No wheezing or rhonchi. HEART S1, S2 regular. No murmurs, gallops, or rubs. EXTREMITIES No clubbing or cyanosis. 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 Cranial nerves 2 to 7 intact. There is no fasciculation or atrophy. noted. No focal deficits observed. IMPRESSION: 1. Snoring, awakenings from sleep 2 times with nocturia, extremely low position of soft palate. Patient takes naps afternoon, obstructive sleep apnea-hypopnea syndrome. 2. Obesity, body mass index 44.2. 3. Coronary artery disease, status post coronary artery bypass grafting. 4. Hypertension. 5. Hyperlipidemia. 6. History of deep venous thrombosis of right leg. 7. Status post total hysterectomy. PLAN: 1. Polysomnography for evaluation of patient's breathing during sleep. 2. CPAP/BiPAP titration if sleep study confirms obstructive sleep apnea-hypopnea syndrome. 3. Preferable position during sleep on the side. 4. No driving if patient feels any sleepiness. 5. I will see patient for follow up visit to explain results of testing and following plan. Thank you very much for allowing for referring this patient for consultation. Sincerely, Fabio Alvarado MD, PhD, FAASM Diplomat of [employer] Floor Polisher [facility] [place] MMODL / IJN: [id number] /
== END ==
CPT/HCPCS: 99211

== ENCOUNTER → 2018-11-18 | Outpatient (CLI) | payer MEDICARE ==
--- NOTE | 2018-11-18 16:17 | US ---
EXAMINATION TYPE: US venous doppler duplex LE RT DATE OF EXAM: 11/18/2018 4:07 PM COMPARISON: NONE CLINICAL HISTORY: I82.401 DVT right leg. history of DVT rt leg, patient on Xeralto. SIDE PERFORMED: Right TECHNIQUE: The lower extremity deep venous system is examined utilizing real time linear array sonog floresita with graded compression, doppler sonography and color-flow sonography. VESSELS IMAGED: External Iliac Vein (EIV) Common Femoral Vein Deep Femoral Vein Greater Saphenous Vein * Femoral Vein Popliteal Vein Proximal Calf Veins (* superficial vessels) Right Leg: Positive for DVT of undeterminate age. There is no flow to thready flow in the prox FV. T he vessel is non compressible. There are collateral vessels seen. There is thrombus seen in the proxi mal pop vein that appears more acute. IMPRESSION: 1. Right lower extremity is positive for deep venous thrombosis. A Red level critical message alert has been initiated for Heri Zapata MD via the [employer] on 11/18/2018 4:14 PM. This message alert has been sent to Heri Zapata MD via [employer] preferences provided by the clinician for the receipt of Radiology Critical Findings. Message ID [id number].
== END | disposition home or self-care (01) ==
LOC: RADUSWWP 15:35
PROVIDERS: ATTEND Internal Medicine Geriatric Medicine
DX: I82.401 Acute embolism and thrombosis of unspecified deep veins of right lower extremity (principal)

== ENCOUNTER → 2019-02-04 | Outpatient (CLI) | payer MEDICARE ==
--- NOTE | 2019-02-04 15:39 | SFUN ---
SLEEP CENTER FOLLOW UP NOTE DATE OF SERVICE: 02/04/2019 A 78-year-old lady has been followed in the Sleep Center to discuss results of sleep study and following plan. I discussed results of sleep study in the patient in details. Sleep study low sleep efficiency. No significant respiratory abnormalities have been documented. No sleep apneas at all, few episodes of hypopneas. Mild periodic limb movements have been documented 15.3 times per hour with 4.2 microarousals per hour. [place] Sleepiness Scale today is 3, which is totally normal. Patient referred that after decreasing amount of caffeinated beverages during the day, she is falling asleep better at night now and quality of sleep is acceptable. MEDICATIONS: Xarelto, losartan, furosemide, atorvastatin, atenolol, potassium supplement. PHYSICAL EXAM: Patient in no distress, BP 151/65, HR 53, RR 16, weight 243, oxygen saturation at room air 99%. Temperature 97.6. OROPHARYNX: Low position of soft palate, Mallampati III. ABDOMEN: Obese. NECK: Supple, no JVD. Thyroid is not palpable. LUNGS: Clear to percussion and to auscultation. Good air exchange. No wheezing or rhonchi. HEART: S1, S2 regular. No murmurs, gallops, or rubs. EXTREMITIES: No clubbing or cyanosis. WELT RANDER: Awake, alert, and oriented X3. Cranial nerves 2 to 7 intact. There is no fasciculation or atrophy. noted. No focal deficits observed. IMPRESSION: 1. No significant respiratory abnormalities by results of polysomnogram. 2. Mild borderline amount of periodic limb movements during the sleep study has been documented. Clinically, presently, patient does not have any significant problems related to normal [place] Sleepiness Scale. 3. Obesity. 4. Coronary artery disease, status post coronary artery bypass grafting. 5. Hypertension. 6. Hyperlipidemia. 7. History of deep venous thrombosis. 8. Status post total hysterectomy. PLAN: 1. Sleep hygiene with regular time in bed for 7-1/2 to 8 hours. 2. Losing weight. 3. Precautions related to driving. No driving if feeling sleepiness. 4. Followup visit in 1 year. At that time, proceed with home sleep apnea test because test which was done had low sleep efficiency. Possibly patient will sleep better at home. Thank you very much for allowing me to participate in the management of your patient. Sincerely, Fabio Alvarado MD, PhD, FAASM Diplomat of [place] [employer] [place] [employer] Medical Office Asst of [facility] [place] MMRENAY / GLENNA: [phone] /
== END | disposition home or self-care (01) ==
LOC: SLEEP 13:24
PROVIDERS: ATTEND Internal Medicine
DX: G47.33 Obstructive sleep apnea (adult) (pediatric) (principal); E66.9 Obesity, unspecified; I25.10 Atherosclerotic heart disease of native coronary artery without angina pectoris; I10 Essential (primary) hypertension; E78.5 Hyperlipidemia, unspecified; Z90.710 Acquired absence of both cervix and uterus; Z86.718 Personal history of other venous thrombosis and embolism; Z95.1 Presence of aortocoronary bypass graft

== ENCOUNTER 2019-02-26 22:00 | Emergency (ER) | payer MEDICARE ==
[2019-02-26 22:13] VITALS: RESP 18; TEMP 98.2
--- NOTE | 2019-02-26 22:24 | ED ---
Arrhythmia/Palpitations HPI - General Chief Complaint: Arrhythmia/Palpitations Stated Complaint: Palpitations Time Seen by Provider: 02/26/19 22:13 Source: patient Mode of arrival: ambulatory Limitations: no limitations - History of Present Illness Initial Comments: this patient is a 78-year-old woman who presents to be evaluated for what she suspects is a recurrence of atrial fibrillation. The patient states that she had been sleeping in her chair tonight around 9 PM when she awoke with rapid heart rate. She states she also was having some substernal chest pain that she describes as an indigestion feeling. She states that she did try taking a dose of nitroglycerin from her . She did not note any change in the symptoms. When things did not resolve she felt she should be evaluated here. Patient denies dyspnea, diaphoresis, nausea or vomiting. No syncope. MD Complaint: "heart racing" Onset/Timin -: hour(s) Context: occurred during rest, awoke with symptoms Arrhythmia History: atrial fibrillation Associated Symptoms: chest pain - Related Data Home Medications Medication Instructions Recorded Confirmed Levothyroxine Sodium [Synthroid] 50 mcg PO QAM 06/07/15 10/01/17 Losartan Potassium 100 mg PO QAM 06/07/15 10/01/17 Nitroglycerin Sl Tabs [Nitrostat] 0.4 mg SUBLINGUAL ONCE PRN 10/01/17 10/01/17 Previous Rx's Medication Instructions Recorded Atenolol [Tenormin] 50 mg PO HS #60 tab 10/03/17 Rivaroxaban [Xarelto] 20 mg PO W/SUPPER #30 tab 10/03/17 Azithromycin [Zithromax Z-pack] 250 mg PO DIRECTED #6 tab 02/27/19 Allergies Allergy/AdvReac Type Severity Reaction Status Date / Time No Known Allergies Allergy Verified 02/26/19 22:13 Review of Systems ROS Statement: Those systems with pertinent positive or pertinent negative responses have been documented in the HPI. ROS Other: All systems not noted in ROS Statement are negative. Constitutional: Denies: fever, chills Respiratory: Denies: cough, dyspnea Cardiovascular: Reports: chest pain, palpitations. 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), psoriasis, shingles >10 years ago, hx of lymphedema post op, eneida cataracts History of Any Multi-Drug Resistant Organisms: None Reported Past Surgical History: Coronary Bypass/CABG, Heart Catheterization, Hysterectomy, Tubal Ligation Additional Past Surgical History / Comment(s): 2 vessel bypass 2004, pilonidal cyst removed, pt stated had lymph node removed w/hysterectomy, dental implants rt lower side Past Anesthesia/Blood Transfusion Reactions: No Reported Reaction Past Psychological History: No Psychological Hx Reported Smoking Status: Never smoker Past Alcohol Use History: Occasional Past Drug Use History: None Reported - Past Family History Mother Family Medical History: Cancer, Congestive Heart Failure (CHF), Deep Vein Thrombosis (DVT), Myocardial Infarction ([place]) Additional Family Medical History / Comment(s): breast cancer Father Family Medical History: Coronary Artery Disease (CAD), Myocardial Infarction ([place]) Sister(s) Family Medical History: Cancer, Deep Vein Thrombosis (DVT) Additional Family Medical History / Comment(s): breast cancer X3 SISTERS Brother(s) Family Medical History: Neurologic Disorder Daughter(s) Family Medical History: No Reported History Son(s) Family Medical History: No Reported History Additional Family Medical History / Comment(s): nephew in high school from [place] General Exam Limitations: no limitations General appearance: alert, in no apparent distress Head exam: Present: atraumatic, normocephalic Eye exam: Present: normal appearance. Absent: scleral icterus, conjunctival injection ENT exam: Present: mucous membranes dry Neck exam: Present: normal inspection Respiratory exam: Present: normal lung sounds bilaterally. Absent: respiratory distress, wheezes, rales, rhonchi, stridor Cardiovascular Exam: Present: tachycardia, irregular rhythm, normal heart sounds. Absent: systolic murmur, diastolic murmur, rubs, gallop GI/Abdominal exam: Present: soft. Absent: distended, tenderness, guarding, rebound Extremities exam: Present: normal inspection, normal capillary refill. Absent: pedal edema, calf tenderness Back exam: Present: normal inspection. Absent: CVA tenderness (R), CVA tenderness (L) Neurological exam: Present: alert Skin exam: Present: warm, dry, intact, normal color. Absent: rash Course Vital Signs 02/26/19 02/27/19 22:11 00:34 Temperature 98.2 F Pulse Rate 126 H 66 Respiratory 18 18 Rate Blood Pressure 112/67 131/74 O2 Sat by Pulse 95 98 Oximetry EKG Findings - EKG Comments: EKG Findings:: underlying rhythm appears to be atrial fibrillation with rapid ventricular rate. - EKG Results: EKG: interpreted by LISSETTE, normal axis Medical Decision Making - Lab Data Result diagrams: 02/26/19 22:30 02/26/19 22:30 Lab Results 02/26/19 02/26/19 02/26/19 Range/Units 22:30 22:30 22:30 WBC 7.8 (3.8-10.6) k/uL RBC 4.21 (3.80-5.40) m/uL Hgb 13.0 (11.4-16.0) gm/dL Hct 40.5 (34.0-46.0) % MCV 96.2 (80.0-100.0) fL MCH 30.9 (25.0-35.0) pg MCHC 32.1 (31.0-37.0) g/dL RDW 13.1 (11.5-15.5) % Plt Count 192 (150-450) k/uL Neutrophils % 62 % Lymphocytes % 24 % Monocytes % 7 % Eosinophils % 4 % Basophils % 1 % Neutrophils # 4.9 (1.3-7.7) k/uL Lymphocytes # 1.9 (1.0-4.8) k/uL Monocytes # 0.6 (0-1.0) k/uL Eosinophils # 0.3 (0-0.7) k/uL Basophils # 0.1 (0-0.2) k/uL PT 10.7 (9.0-12.0) sec INR 1.0 (<1.2) APTT 26.3 (22.0-30.0) sec Sodium 139 (137-145) mmol/L Potassium 4.2 (3.5-5.1) mmol/L Chloride 106 (98-107) mmol/L Carbon Dioxide 26 (22-30) mmol/L Anion Gap 7 mmol/L BUN 22 H (7-17) mg/dL Creatinine 0.99 (0.52-1.04) mg/dL Est GFR (CKD-EPI)AfAm 64 (>60 ml/min/1.73 sqM) Est GFR (CKD-EPI)NonAf 55 (>60 ml/min/1.73 sqM) Glucose 130 H (74-99) mg/dL Calcium 9.5 (8.4-10.2) mg/dL Magnesium 2.0 (1.6-2.3) mg/dL Total Bilirubin 0.5 (0.2-1.3) mg/dL AST 23 (14-36) U/L ALT 16 (4-34) U/L Alkaline Phosphatase 76 (38-126) U/L Troponin I (0.000-0.034) ng/mL Total Protein 6.0 L (6.3-8.2) g/dL Albumin 3.5 (3.5-5.0) g/dL TSH 4.480 (0.465-4.680) mIU/L 02/26/ Range/Units 22:30 WBC (3.8-10.6) k/uL RBC (3.80-5.40) m/uL Hgb (11.4-16.0) gm/dL Hct (34.0-46.0) % MCV (80.0-100.0) fL MCH (25.0-35.0) pg MCHC (31.0-37.0) g/dL RDW (11.5-15.5) % Plt Count (150-450) k/uL Neutrophils % % Lymphocytes % % Monocytes % % Eosinophils % % Basophils % % Neutrophils # (1.3-7.7) k/uL Lymphocytes # (1.0-4.8) k/uL Monocytes # (0-1.0) k/uL Eosinophils # (0-0.7) k/uL Basophils # (0-0.2) k/uL PT (9.0-12.0) sec INR (<1.2) APTT (22.0-30.0) sec Sodium (137-145) mmol/L Potassium (3.5-5.1) mmol/L Chloride (98-107) mmol/L Carbon Dioxide (22-30) mmol/L Anion Gap mmol/L BUN (7-17) mg/dL Creatinine (0.52-1.04) mg/dL Est GFR (CKD-EPI)AfAm (>60 ml/min/1.73 sqM) Est GFR (CKD-EPI)NonAf (>60 ml/min/1.73 sqM) Glucose (74-99) mg/dL Calcium (8.4-10.2) mg/dL Magnesium (1.6-2.3) mg/dL Total Bilirubin (0.2-1.3) mg/dL AST (14-36) U/L ALT (4-34) U/L Alkaline Phosphatase (38-126) U/L Troponin I <0.012 (0.000-0.034) ng/mL Total Protein (6.3-8.2) g/dL Albumin (3.5-5.0) g/dL TSH (0.465-4.680) mIU/L Disposition Clinical Impression: Paroxysmal atrial fibrillation, Atrial fibrillation with rapid ventricular response Disposition: HOME SELF-CARE Condition: Good Instructions (If sedation given, give patient instructions): A-fib (Atrial Fibrillation) (DC) Prescriptions: Azithromycin [Zithromax Z-pack] 250 mg PO DIRECTED #6 tab Is patient prescribed a controlled substance at d/c from ED?: No Referrals: Heri Zapata MD [Primary Care Provider] - 1-2 days
--- NOTE | 2019-02-26 22:48 | XR ---
EXAMINATION TYPE: XR chest 1V portable DATE OF EXAM: 02/26/2019 COMPARISON: 10/02/2017 HISTORY: Chest pain TECHNIQUE: Single view FINDINGS: There is no heart failure. There are sternal wires. There are chest leads. Costophrenic ang les are clear. There is a possible mild infiltrate in the right lower lobe in the right paraspinal re gion. IMPRESSION: Possible new right lower lobe infiltrate compared to last exam. No heart failure.
[2019-02-26 22:50] LABS: Basophils # (A) 0.1 k/uL (0-0.2); Basophils % (A) 1 %; Eosinophils # (A) 0.3 k/uL (0-0.7); Eosinophils % (A) 4 %; HCT 40.5 % (34.0-46.0); Lymphocytes # (A) 1.9 k/uL (1.0-4.8); Lymphocytes % (A) 24 %; MCH 30.9 pg (25.0-35.0); MCHC 32.1 g/dL (31.0-37.0); MCV 96.2 fL (80.0-100.0); Mean Platelet Volume 8.4; Monocytes # (A) 0.6 k/uL (0-1.0); Monocytes % (A) 7 %; Neutrophils # (A) 4.9 k/uL (1.3-7.7); Neutrophils % (A) 62 %; Platelet Count 192 k/uL (150-450); RBC 4.21 m/uL (3.80-5.40); RDW 13.1 % (11.5-15.5); WBC 7.8 k/uL (3.8-10.6)
[2019-02-26 22:58] LABS: Partial Thromboplastin Time 26.3 sec (22.0-30.0); Prothrombin Time 10.7 sec (9.0-12.0)
[2019-02-26 23:02] LABS: Albumin 3.5 g/dL (3.5-5.0); Calcium 9.5 mg/dL (8.4-10.2); Potassium 4.2 mmol/L (3.5-5.1); Total Bilirubin 0.5 mg/dL (0.2-1.3)
[2019-02-27] MEDS ORDERED: DILTIAZEM DRIP BOLUS FROM BAG 1 MG SOLN IV ONE (00:13)
[2019-02-27] MEDS ORDERED: DILTIAZEM 125 MG in SODIUM CHLORIDE 0.9% 100 ML IV SCH (00:30)
[2019-02-27] MEDS ORDERED: DILTIAZEM ORAL 30 MG TAB PO STA (00:37)
[2019-02-27 00:38] VITALS: BP 131/74; PULSE 66
== END 2019-02-27 01:22 | disposition home or self-care (01) ==
LOC: EC 22:00
DX: I48.0 Paroxysmal atrial fibrillation (principal); I25.10 Atherosclerotic heart disease of native coronary artery without angina pectoris; E07.9 Disorder of thyroid, unspecified; I10 Essential (primary) hypertension; Z79.899 Other long term (current) drug therapy; Z86.718 Personal history of other venous thrombosis and embolism; Z95.1 Presence of aortocoronary bypass graft; Z85.42 Personal history of malignant neoplasm of other parts of uterus; Z85.828 Personal history of other malignant neoplasm of skin
CPT/HCPCS: 36415; 71045; 80053; 83735; 84443; 84484; 85025; 85610; 85730; 93005; 99285

== ENCOUNTER 2019-03-17 00:53 | Emergency (ER) | payer MEDICARE ==
[2019-03-17 01:09] VITALS: PULSE 59; RESP 18; TEMP 98.5
--- NOTE | 2019-03-17 01:12 | ED ---
Fall HPI - General Chief Complaint: Fall Stated Complaint: etoh Time Seen by Provider: 03/17/19 01:00 Source: patient, EMS, RN notes reviewed Limitations: no limitations - History of Present Illness Initial Comments: 78-year-old female presents emergency Department via EMS from home chief complaint trip, fall, head injury. states that she had several drinks tonight, loss of balance fall striking left side of her head. She didn't lose consciousness at that time. Patient does currently taking Xarelto. Patient specifically does not have any complaints of headache, neck pain, back pain, chest pain, lower extremity or upper extremity injury. Patient states that she does not know why she is here. - Related Data Home Medications Medication Instructions Recorded Confirmed Levothyroxine Sodium [Synthroid] 50 mcg PO QAM 06/07/15 10/01/17 Losartan Potassium 100 mg PO QAM 06/07/15 10/01/17 Nitroglycerin Sl Tabs [Nitrostat] 0.4 mg SUBLINGUAL ONCE PRN 10/01/17 10/01/17 Previous Rx's Medication Instructions Recorded Atenolol [Tenormin] 50 mg PO HS #60 tab 10/03/17 Rivaroxaban [Xarelto] 20 mg PO W/SUPPER #30 tab 10/03/17 Azithromycin [Zithromax Z-pack] 250 mg PO DIRECTED #6 tab 02/27/19 Allergies Allergy/AdvReac Type Severity Reaction Status Date / Time No Known Allergies Allergy Verified 03/17/19 01:06 Review of Systems ROS Statement: Those systems with pertinent positive or pertinent negative responses have been documented in the HPI. ROS Other: All systems not noted in ROS Statement are negative. 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), psoriasis, shingles >10 years ago, hx of lymphedema post op, eneida cataracts History of Any Multi-Drug Resistant Organisms: None Reported Past Surgical History: Coronary Bypass/CABG, Heart Catheterization, Hysterectomy, Tubal Ligation Additional Past Surgical History / Comment(s): 2 vessel bypass 2005, pilonidal cyst removed, pt stated had lymph node removed w/hysterectomy, dental implants rt lower side Past Anesthesia/Blood Transfusion Reactions: No Reported Reaction Past Psychological History: No Psychological Hx Reported Smoking Status: Never smoker Past Alcohol Use History: Occasional Past Drug Use History: None Reported - Past Family History Mother Family Medical History: Cancer, Congestive Heart Failure (CHF), Deep Vein Thrombosis (DVT), Myocardial Infarction ([place]) Additional Family Medical History / Comment(s): breast cancer Father Family Medical History: Coronary Artery Disease (CAD), Myocardial Infarction ([place]) Sister(s) Family Medical History: Cancer, Deep Vein Thrombosis (DVT) Additional Family Medical History / Comment(s): breast cancer X3 SISTERS Brother(s) Family Medical History: Neurologic Disorder Daughter(s) Family Medical History: No Reported History Son(s) Family Medical History: No Reported History Additional Family Medical History / Comment(s): nephew in high school from [place] General Exam Limitations: altered mental status General appearance: alert, in no apparent distress, appears intoxicated Head exam: Present: atraumatic, normocephalic. Absent: normal inspection (Hematoma left-sided had) Eye exam: Present: normal appearance, PERRL, EOMI. Absent: scleral icterus, conjunctival injection, periorbital swelling ENT exam: Present: normal exam, mucous membranes moist Neck exam: Present: normal inspection, full ROM. Absent: tenderness, meningismus, lymphadenopathy Respiratory exam: Present: normal lung sounds bilaterally. Absent: respiratory distress, wheezes, rales, rhonchi, stridor Cardiovascular Exam: Present: regular rate, normal rhythm, normal heart sounds. Absent: systolic murmur, diastolic murmur, rubs, gallop, clicks Neurological exam: Present: alert, CN II-XII intact, reflexes normal. Absent: oriented X3, motor sensory deficit Skin exam: Present: warm, dry, intact, normal color. Absent: rash Course Vital Signs 03/17/19 00:59 Temperature 98.5 F Pulse Rate 59 L Respiratory 18 Rate Blood Pressure 116/61 O2 Sat by Pulse 98 Oximetry Medical Decision Making - Medical Decision Making CT of the brain and C-spine are negative for acute findings. Patient does have is evidence of a head injury no evidence of acute intracranial hemorrhage I did inform family and patient for possible incidence of delayed bleed and return parameters. Patient does have alcohol on board at this time patient will be discharged to family in stable condition. Disposition Clinical Impression: Fall, Head injury, Alcohol intoxication Disposition: HOME SELF-CARE Condition: Stable Instructions (If sedation given, give patient instructions): Head Injury (ED) Additional Instructions: Please return to the Emergency Department if symptoms worsen or any other concerns. Is patient prescribed a controlled substance at d/c from ED?: No Referrals: Heri Zapata MD [Primary Care Provider] - 1-2 days Time of Disposition: 02:10
--- NOTE | 2019-03-17 02:04 | CT ---
EXAMINATION TYPE: CT brain yasmin elias DATE OF EXAM: 03/17/2019 COMPARISON: None HISTORY: Patient presents with head and neck pain after fall. CT DLP: 1628.9 mGycm Automated exposure control for dose reduction was used. Ventricles have normal size. There is no mass effect nor midline shift. There is no sign of intracran ial hemorrhage. There is mild hypodensity in the periventricular white matter. Calvarium is intact. T here is no evidence of cortical infarct. Skull base is intact. Cervical vertebra have normal alignment. There is degenerative disc space narrowing from C3 to to C7. There is hypertrophic multilevel facet arthropathy. The skull base is intact. IMPRESSION: Spondylotic changes in the cervical spine. No fracture. Mild chronic small vessel ischemia. No acute intracranial abnormality.
[2019-03-17 02:20] VITALS: BP 128/62
== END 2019-03-17 02:26 | disposition home or self-care (01) ==
LOC: EC 00:53
DX: S09.90XA Unspecified injury of head, initial encounter (principal); F10.129 Alcohol abuse with intoxication, unspecified; R41.82 Altered mental status, unspecified; I48.91 Unspecified atrial fibrillation; I25.10 Atherosclerotic heart disease of native coronary artery without angina pectoris; I10 Essential (primary) hypertension; E07.9 Disorder of thyroid, unspecified; Z79.01 Long term (current) use of anticoagulants; Z79.890 Hormone replacement therapy; Z79.899 Other long term (current) drug therapy; Z85.828 Personal history of other malignant neoplasm of skin; Z86.718 Personal history of other venous thrombosis and embolism; Z85.42 Personal history of malignant neoplasm of other parts of uterus; Z95.1 Presence of aortocoronary bypass graft; Z90.710 Acquired absence of both cervix and uterus; Z98.890 Other specified postprocedural states; W01.0XXA Fall on same level from slipping, tripping and stumbling without subsequent striking against object, initial encounter; Y93.01 Activity, walking, marching and hiking; Y92.009 Unspecified place in unspecified non-institutional (private) residence as the place of occurrence of the external cause
CPT/HCPCS: 70450; 72125; 99284

== ENCOUNTER → 2019-04-28 | Outpatient (CLI) | payer MEDICARE ==
--- NOTE | 2019-04-29 14:34 | MM ---
Reason for exam: screening (asymptomatic). Last mammogram was performed 1 year and 9 months ago. History: Patient is postmenopausal and has history of endometrial cancer at age 69. Family history of breast cancer in 3 sisters at age 50 and breast cancer in mother at age 50. Physical Findings: A clinical breast exam by your physician is recommended on an annual basis and results should be correlated with mammographic findings. MG 3D Screening Mammo W/Cad Bilateral CC and MLO view(s) were taken. Prior study comparison: July 22, 2017, bilateral MG 3d screening mammo w/cad. May 16, 2015, bilateral MG screening mammo w CAD. The breast tissue is heterogeneously dense. This may lower the sensitivity of mammography. Stable benign calcifications. There is no discrete abnormality. No significant changes when compared with prior studies. ASSESSMENT: Benign, BI-RAD 2 RECOMMENDATION: Routine screening mammogram of both breasts in 1 year.
== END | disposition home or self-care (01) ==
LOC: RADMAMWWP 11:28
PROVIDERS: ATTEND Internal Medicine Geriatric Medicine
DX: Z12.31 Encounter for screening mammogram for malignant neoplasm of breast (principal)
CPT/HCPCS: 77063; 77067

== ENCOUNTER → 2019-12-14 | Outpatient (CLI) | payer MEDICARE ==
--- NOTE | 2019-12-16 08:17 | BD ---
EXAMINATION TYPE: Axial Bone Density DATE OF EXAM: 12/14/2019 COMPARISON: 07/22/2017 CLINICAL HISTORY: Height: 62 IN Weight: 244 LBS RISK FACTORS HISTORY OF: Active: MODERATE Postmenopausal woman: PARTIAL HYST AGE 46 Take estrogen and/or progesterone medications: NOT NOW How long: TOOK CONTROL PREVIOUSLY FOR 1 YEAR MEDICATIONS: Thyroid Medications: YES Which medication: Synthroid How Lon+ YEARS Additional Medications: SYNTHROID, BLOOD PRESSURE MEDS, WATER PILL, POTASSIUM, ATENOLOL, STATINS, BLO OD THINNER Additional History: UTERINE CANCER EXAM MEASUREMENTS: Bone mineral densitometry was performed using the [employer] System. Bone mineral density as measured about the Lumbar spine is: ----- L1-L4(G/cm2): 1.419 T Score Values are as follows: ----- L2: 1.0 ----- L3: 3.1 ----- L4: 2.1 ----- L1-L4: 2.0 Bone mineral density has: Increased 1.5% since study of: 07/22/2017 Bone mineral density about the R hip (g/cm2): 0.853 Bone mineral density about the L hip (g/cm2): 0.817 T Score values are as follows: -----R Neck: -1.3 -----L Neck: -1.6 -----R Total: -0.4 -----L Total: -0.3 Bone mineral density has: Decreased -1.0% since study of: 07/22/2017 IMPRESSION: No evidence for osteoporosis are osteopenia. NOTE: T-SCORE=SD OF THE YOUNG ADULT MEAN.
== END | disposition home or self-care (01) ==
LOC: RADBDWWP 16:13
PROVIDERS: ATTEND Internal Medicine Geriatric Medicine
DX: M81.0 Age-related osteoporosis without current pathological fracture (principal)
CPT/HCPCS: 77080

== ENCOUNTER → 2021-01-17 | Outpatient (CLI) | payer MEDICARE ==
--- NOTE | 2021-01-17 12:52 | XR ---
EXAMINATION TYPE: XR lumbar spine 3 views DATE OF EXAM: 01/17/2021 Comparison: None Clinical History: 80-year-old female M54.9 Back Pain Findings: Hypertrophic facet arthropathy throughout. Accentuated lumbar lordosis. Grade 1 anterolisthesis L3-L4 , L4-L5, and L5-S1. Moderate degenerative disc disease mid to lower lumbar spine. Prominent endplate spondylosis lower thoracic spine. Atherosclerotic calcifications throughout the abdominal aorta with ectasia up to 2.8 cm. Surgical clips in the pelvis. Impression: 1. Hypertrophic facet arthropathy throughout with grade 1 anterolisthesis L3-L4, L4-L5, and L5-S1. 2. Moderate degenerative disc disease mid to lower lumbar spine. 3. No vertebral compression collapse.
== END | disposition home or self-care (01) ==
LOC: RADXRMAIN 11:57
PROVIDERS: ATTEND Internal Medicine Geriatric Medicine
DX: M43.16 Spondylolisthesis, lumbar region (principal); M51.36 Other intervertebral disc degeneration, lumbar region; M47.816 Spondylosis without myelopathy or radiculopathy, lumbar region
CPT/HCPCS: 72100

== ENCOUNTER → 2021-02-10 | Outpatient (CLI) | payer MEDICARE ==
--- NOTE | 2021-02-11 03:53 | MR ---
EXAMINATION TYPE: MR lumbar spine wo/w con DATE OF EXAM: 02/10/2021 COMPARISON: None HISTORY: Back pain, RLE radiculopathy x 2 years. CONTRAST: Standard multiplanar, multisequence MRI departmental protocol images were obtained without contrast a nd with 10 mL intravenous Gadavist gadolinium contrast. The lumbar vertebra have fairly normal alignment. There is a 5 mm L4-5 spondylolisthesis. There is no spondylolysis. There is degenerative disc space narrowing throughout the lumbar spine. Is posterior endplate spur formation and mild disc bulging from L1 to L5. There is moderately severe spinal stenos is at L4-5 due to facet arthropathy and subluxation. There is moderate lateral recess stenosis at L3- 4 due to facet arthropathy. There is no lumbar paraspinal mass. There is no evidence of focal bone de struction. There is no compression fracture. Contrast images show no pathologic enhancement. IMPRESSION: There is moderate spinal stenosis at L4-5 with a degenerative first-degree L4-5 spondylolisthesis. Mu ltilevel degenerative disc space narrowing. Lateral recess stenosis at L3-4. There is right side L4-5 neural foraminal narrowing due to facet art hropathy and subluxation.
== END | disposition home or self-care (01) ==
LOC: RADMRIMAIN 12:36
PROVIDERS: ATTEND Internal Medicine Geriatric Medicine
DX: M51.16 Intervertebral disc disorders with radiculopathy, lumbar region (principal); M47.26 Other spondylosis with radiculopathy, lumbar region; M48.061 Spinal stenosis, lumbar region without neurogenic claudication; M99.73 Connective tissue and disc stenosis of intervertebral foramina of lumbar region; M43.16 Spondylolisthesis, lumbar region
CPT/HCPCS: 72158; A9585

== ENCOUNTER → 2021-11-13 | Outpatient (CLI) | payer MEDICARE ==
--- NOTE | 2021-11-13 13:44 | MR ---
EXAMINATION TYPE: MR lumbar spine wo/w con DATE OF EXAM: 11/13/2021 11:48 AM COMPARISON: Prior lumbar spine 01/16/2021. CLINICAL INDICATION:Female, 81 years old with history of M48.00 SPINAL STENOSIS, SITE UNSPECIFIED; TECHNIQUE: Multi planar, multi sequence imaging was performed utilizing: T1-weighted, T2-weighted, a nd turbo inversion recovery imaging of the lumbar spine. IV Contrast: 11 cc Gadavist FINDINGS: Alignment: The lumbar vertebral bodies have preserved heights. Grade 1 anterolisthesis of L4 on L5 is again demonstrated. Cord: The conus medullaris and the distal spinal cord appear unremarkable with regards to their signa l intensity and morphology. No abnormal postcontrast enhancement. Bones/Discs: Multilevel Modic endplate changes are seen throughout the spine. L4 vertebral body heman gioma is unchanged from prior 2020. Osteophyte formation throughout the spine is present. Multilevel degenerative disc disease is noted and most pronounced at the L3-L4 and L4-L5. Multilevel disc desicc ation is present. No abnormal postcontrast enhancement is identified. Suspected inversion recovery [place] reactive edema at the adjoining anterior endplates of L4 and L5 most pronounced on the right anter ior aspect. T11-T12: Disc bulge without significant spinal canal stenosis. Additional set facet joint arthropathy with moderate to severe right and mild left neural foraminal stenosis. T12-L1: Disc bulge without significant spinal canal stenosis. Additional set facet joint arthropathy with moderate to severe right and moderate left neural foraminal stenosis. L1-L2: Disc bulge without significant spinal canal stenosis. Additional facet joint arthropathy resul ts in moderate bilateral neural foraminal stenosis. L2-L3: Disc bulge with facet joint arthropathy result in mild spinal canal and moderate left and mild right neural foraminal stenosis. L3-L4: Disc bulge with facet joint arthropathy result in severe spinal canal stenosis and moderate to severe bilateral neural foraminal stenosis. There is blunting of the cauda equina at this level. L4-L5: Disc uncovering with disc bulging and facet joint arthropathy resulting in moderate to severe spinal canal stenosis as well as moderate left and moderate to severe right neural foraminal stenosi s. L5-S1: Disc bulge without significant spinal canal stenosis. Additional facet joint arthropathy with mild to moderate neural foraminal stenosis bilaterally. Other findings: None. IMPRESSION: 1. L3-L4 severe spinal canal stenosis secondary to combination of disc bulge and facet joint arthropa thy. Similar findings on prior in 2020. 2. L4-L5 moderate to severe spinal canal stenosis secondary to combination of disc bulge and facet jill int arthropathy. Similar findings on prior in 2020. 3. Additional multilevel disc degeneration with associated osteoarthritic changes with varying degree s of neural foraminal and spinal canal stenosis as described above. 4. No abnormal postcontrast enhancement.
== END | disposition home or self-care (01) ==
LOC: RADMRIMAIN 10:46
PROVIDERS: ATTEND Internal Medicine Geriatric Medicine
DX: M47.817 Spondylosis without myelopathy or radiculopathy, lumbosacral region (principal); M51.36 Other intervertebral disc degeneration, lumbar region; M51.26 Other intervertebral disc displacement, lumbar region; M99.74 Connective tissue and disc stenosis of intervertebral foramina of sacral region; M48.061 Spinal stenosis, lumbar region without neurogenic claudication
CPT/HCPCS: 72158; A9585

== ENCOUNTER 2021-12-20 09:51 | Observation (INO) | payer MEDICARE ==
[2021-12-20 11:15] LABS: Basophils # (A) 0.1 k/uL (0-0.2); Basophils % (A) 1 %; Eosinophils # (A) 0.2 k/uL (0-0.7); Eosinophils % (A) 3 %; HCT 37.8 % (34.0-46.0); HGB 12.5 gm/dL (11.4-16.0); Lymphocytes # (A) 0.9 k/uL (1.0-4.8); Lymphocytes % (A) 14 %; MCH 31.5 pg (25.0-35.0); MCV 95.2 fL (80.0-100.0); Mean Platelet Volume 8.4; Monocytes # (A) 0.5 k/uL (0-1.0); Monocytes % (A) 9 %; Neutrophils # (A) 4.4 k/uL (1.3-7.7); Neutrophils % (A) 71 %; Platelet Count 178 k/uL (150-450); RBC 3.97 m/uL (3.80-5.40); WBC 6.2 k/uL (3.8-10.6)
--- NOTE | 2021-12-20 11:20 | ED ---
General Adult HPI - General Chief complaint: Chest Pain Stated complaint: hypotension, heart palpitations Time Seen by Provider: 12/20/21 10:49 Source: patient, family, RN notes reviewed Mode of arrival: ambulatory Limitations: no limitations - History of Present Illness Initial comments: Patient is an 81-year-old male presents the emergency room via EMS with complaints of chest pain, palpitations and dizziness along with generalized malaise that were occurring throughout the night last night. This morning she took 2 nitroglycerin which caused subsequent hypotension causing her to call EMS for transport to the hospital. In addition to her symptoms during the night she reports having frequent urination. She denies any dysuria or hematuria with her urinary frequency. At this time she remains chest pain, dizziness and palpitation free. She denies any other associated symptoms including any shortness of breath, orthopnea, diaphoresis, lower extremity swelling, headache, altered mental status, fevers or chills. She has a past medical history significant for paroxysmal A. fib, CAD, uterine cancer with previous hysterectomy, DVT, GERD, hyperlipidemia, hypertension and hypothyroidism. She is on Xarelto. - Related Data Home Medications Medication Instructions Recorded Confirmed Levothyroxine Sodium [Synthroid] 50 mcg PO QAM 06/07/15 10/01/17 Losartan Potassium 100 mg PO QAM 06/07/15 10/01/17 Nitroglycerin Sl Tabs [Nitrostat] 0.4 mg SUBLINGUAL ONCE PRN 10/01/17 10/01/17 Atorvastatin [Lipitor] 20 mg PO HS 12/20/21 12/20/21 Baclofen [Lioresal] 10 mg PO ONCE PRN 12/20/21 12/20/21 Potassium Chloride [Klor-Con M20] 20 meq PO DAILY 12/20/21 12/20/21 Pregabalin [Lyrica] 100 mg PO HS 12/20/21 12/20/21 Rivaroxaban [Xarelto] 20 mg PO HS 12/20/21 12/20/21 Triamterene-Hctz 37.5-25Mg 1 tab PO DAILY 12/20/21 12/20/21 [Maxzide 37.5-25] Previous Rx's Medication Instructions Recorded atenoloL [Tenormin] 50 mg PO HS #60 tab 10/03/17 Allergies Allergy/AdvReac Type Severity Reaction Status Date / Time No Known Allergies Allergy Verified 12/20/21 12:30 Review of Systems ROS Statement: Those systems with pertinent positive or pertinent negative responses have been documented in the HPI. ROS Other: All systems not noted in ROS Statement are negative. 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), psoriasis, shingles >10 years ago, hx of lymphedema post op, eneida cataracts History of Any Multi-Drug Resistant Organisms: None Reported Past Surgical History: Coronary Bypass/CABG, Heart Catheterization, Hysterectomy, Tubal Ligation Additional Past Surgical History / Comment(s): 2 vessel bypass 2004, pilonidal cyst removed, pt stated had lymph node removed w/hysterectomy, dental implants rt lower side Past Anesthesia/Blood Transfusion Reactions: No Reported Reaction Past Psychological History: No Psychological Hx Reported Smoking Status: Never smoker Past Alcohol Use History: Occasional Past Drug Use History: None Reported - Past Family History Mother Family Medical History: Cancer, Congestive Heart Failure (CHF), Deep Vein Thrombosis (DVT), Myocardial Infarction ([place]) Additional Family Medical History / Comment(s): breast cancer Father Family Medical History: Coronary Artery Disease (CAD), Myocardial Infarction ([place]) Sister(s) Family Medical History: Cancer, Deep Vein Thrombosis (DVT) Additional Family Medical History / Comment(s): breast cancer X3 SISTERS Brother(s) Family Medical History: Neurologic Disorder Daughter(s) Family Medical History: No Reported History Son(s) Family Medical History: No Reported History Additional Family Medical History / Comment(s): nephew in high school from [place] General Exam General appearance: alert, in no apparent distress Head exam: Present: atraumatic, normocephalic, normal inspection Eye exam: Present: normal appearance, PERRL, EOMI. Absent: scleral icterus, conjunctival injection, periorbital swelling ENT exam: Present: normal exam, mucous membranes moist Neck exam: Present: normal inspection. Absent: lymphadenopathy Respiratory exam: Present: normal lung sounds bilaterally. Absent: respiratory distress, wheezes, rales, rhonchi, stridor Cardiovascular Exam: Present: regular rate, normal rhythm, normal heart sounds. Absent: systolic murmur, diastolic murmur, rubs, gallop, clicks GI/Abdominal exam: Present: soft, normal bowel sounds. Absent: distended, tenderness, guarding, rebound, rigid Extremities exam: Present: normal inspection. Absent: pedal edema, joint swelling Back exam: Present: normal inspection Neurological exam: Present: alert, oriented X3, CN II-XII intact Psychiatric exam: Present: normal affect, normal mood Course Vital Signs 12/20/21 10:32 Temperature 97.6 F Pulse Rate 61 Respiratory 18 Rate Blood Pressure 132/78 O2 Sat by Pulse 99 Oximetry Medical Decision Making - Medical Decision Making 81-year-old female presenting to the emergency room via EMS with complaints of chest pain, palpitations and dizziness during the night relieved with nitroglycerin. Currently chest pain-free. In the setting of chest pain rel ieved with nitroglycerin and episode of hypotension will workup for ACS with EKG, chest x-ray, CBC, CMP, troponin and magnesium. Will also check urinalysis given urinary frequency. Currently chest pain-free no need for analgesics at this time. 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 CBC within normal limits CMP shows mild dehydration. Troponin negative, magnesium normal. Urinalysis reveals moderate bacteria and leukocytes. Symptoms likely secondary to uric UTI however given past medical history will need observation admission for monitoring for ACS symptoms. Dr. Quezada patient's PCP caged regarding need for observation. Will give gentle hydration and Macrobid for UTI. Case discussed with Dr. Deal. - Lab Data Result diagrams: 12/20/21 11:06 12/20/21 11:06 Lab Results 12/20/21 12/20/21 12/20/21 Range/Units 11:06 11:06 11:06 WBC 6.2 (3.8-10.6) k/uL RBC 3.97 (3.80-5.40) m/uL Hgb 12.5 (11.4-16.0) gm/dL Hct 37.8 (34.0-46.0) % MCV 95.2 (80.0-100.0) fL MCH 31.5 (25.0-35.0) pg MCHC 33.0 (31.0-37.0) g/dL RDW 13.0 (11.5-15.5) % Plt Count 178 (150-450) k/uL MPV 8.4 Neutrophils % 71 % Lymphocytes % 14 % Monocytes % 9 % Eosinophils % 3 % Basophils % 1 % Neutrophils # 4.4 (1.3-7.7) k/uL Lymphocytes # 0.9 L (1.0-4.8) k/uL Monocytes # 0.5 (0-1.0) k/uL Eosinophils # 0.2 (0-0.7) k/uL Basophils # 0.1 (0-0.2) k/uL PT 11.2 (9.0-12.0) sec INR 1.0 (<1.2) APTT 27.7 (22.0-30.0) sec Sodium 136 L (137-145) mmol/L Potassium 4.9 (3.5-5.1) mmol/L Chloride 102 (98-107) mmol/L Carbon Dioxide 25 (22-30) mmol/L Anion Gap 9 mmol/L BUN 29 H (7-17) mg/dL Creatinine 1.23 H (0.52-1.04) mg/dL Est GFR (CKD-EPI)AfAm 48 (>60 ml/min/1.73 sqM) Est GFR (CKD-EPI)NonAf 42 (>60 ml/min/1.73 sqM) Glucose 85 (74-99) mg/dL Calcium 9.5 (8.4-10.2) mg/dL Magnesium 2.1 (1.6-2.3) mg/dL Total Bilirubin 0.8 (0.2-1.3) mg/dL AST 25 (14-36) U/L ALT 23 (4-34) U/L Alkaline Phosphatase 78 (38-126) U/L Troponin I (0.000-0.034) ng/mL Total Protein 6.1 L (6.3-8.2) g/dL Albumin 3.7 (3.5-5.0) g/dL Urine Color Urine Appearance (Clear) Urine pH (5.0-8.0) Ur Specific [place] (1.001-1.035) Urine Protein (Negative) Urine Glucose (UA) (Negative) Urine Ketones (Negative) Urine Blood (Negative) Urine Nitrite (Negative) Urine Bilirubin (Negative) Urine Urobilinogen (<2.0) mg/dL Ur Leukocyte Esterase (Negative) Urine WBC (0-5) /hpf Ur Squamous Epith Cells (0-4) /hpf Urine Bacteria (None) /hpf 12/20/21 12/20/21 Range/Units 11:06 11:46 WBC (3.8-10.6) k/uL RBC (3.80-5.40) m/uL Hgb (11.4-16.0) gm/dL Hct (34.0-46.0) % MCV (80.0-100.0) fL MCH (25.0-35.0) pg MCHC (31.0-37.0) g/dL RDW (11.5-15.5) % Plt Count (150-450) k/uL MPV Neutrophils % % Lymphocytes % % Monocytes % % Eosinophils % % Basophils % % Neutrophils # (1.3-7.7) k/uL Lymphocytes # (1.0-4.8) k/uL Monocytes # (0-1.0) k/uL Eosinophils # (0-0.7) k/uL Basophils # (0-0.2) k/uL PT (9.0-12.0) sec INR (<1.2) APTT (22.0-30.0) sec Sodium (137-145) mmol/L Potassium (3.5-5.1) mmol/L Chloride (98-107) mmol/L Carbon Dioxide (22-30) mmol/L Anion Gap mmol/L BUN (7-17) mg/dL Creatinine (0.52-1.04) mg/dL Est GFR (CKD-EPI)AfAm (>60 ml/min/1.73 sqM) Est GFR (CKD-EPI)NonAf (>60 ml/min/1.73 sqM) Glucose (74-99) mg/dL Calcium (8.4-10.2) mg/dL Magnesium (1.6-2.3) mg/dL Total Bilirubin (0.2-1.3) mg/dL AST (14-36) U/L ALT (4-34) U/L Alkaline Phosphatase (38-126) U/L Troponin I <0.012 (0.000-0.034) ng/mL Total Protein (6.3-8.2) g/dL Albumin (3.5-5.0) g/dL Urine Color Light Yellow Urine Appearance Cloudy H (Clear) Urine pH 8.0 (5.0-8.0) Ur Specific [place] 1.008 (1.001-1.035) Urine Protein Negative (Negative) Urine Glucose (UA) Negative (Negative) Urine Ketones Negative (Negative) Urine Blood Negative (Negative) Urine Nitrite Negative (Negative) Urine Bilirubin Negative (Negative) Urine Urobilinogen <2.0 (<2.0) mg/dL Ur Leukocyte Esterase Trace H (Negative) Urine WBC 7 H (0-5) /hpf Ur Squamous Epith Cells <1 (0-4) /hpf Urine Bacteria Moderate H (None) /hpf - EKG Data EKG Comments: Sinus rhythm, 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 Disposition Clinical Impression: Chest pain, UTI (urinary tract infection) Disposition: ADMITTED IP TO THIS HOSP Condition: Stable Is patient prescribed a controlled substance at d/c from ED?: No Referrals: Heri Zapata MD [Primary Care Provider] - 1-2 days Time of Disposition: 12:40
--- NOTE | 2021-12-20 11:27 | XR ---
EXAMINATION TYPE: XR chest 2V DATE OF EXAM: 12/20/2021 11:16 AM COMPARISON: Chest radiographs from 02/26/2019. TECHNIQUE: XR chest 2V Frontal and lateral views of the chest. CLINICAL INDICATION:Female, 81 years old with history of Chest Pain; FINDINGS: Lungs/Pleura: There is no evidence of pleural effusion or focal consolidation. Left lower lobe atelec tasis. Pulmonary vascularity: Unremarkable. Heart/mediastinum: Cardiomediastinal silhouette is unremarkable. Atherosclerotic calcifications are seen in the aorta. Post surgical changes. Musculoskeletal: No acute osseous pathology. Midline sternotomy wires are noted and stable. IMPRESSION: Left lower lobe atelectasis otherwise no evidence for acute cardiopulmonary process.
[2021-12-20 11:36] LABS: Partial Thromboplastin Time 27.7 sec (22.0-30.0); Prothrombin Time 11.2 sec (9.0-12.0)
[2021-12-20 12:05] LABS: Albumin 3.7 g/dL (3.5-5.0); Calcium 9.5 mg/dL (8.4-10.2); Magnesium 2.1 mg/dL (1.6-2.3); Potassium 4.9 mmol/L (3.5-5.1); Total Bilirubin 0.8 mg/dL (0.2-1.3); Total Protein 6.1 g/dL (6.3-8.2)
[2021-12-20 12:09] LABS: Appearance,Urine Cloudy (Clear); Bacteria,Urine Moderate /hpf; Bilirubin,Urine Negative (Negative); Blood,Urine Negative (Negative); Color,Urine Light Yellow; Glucose,Urine (UA) Negative (Negative); Ketones,Urine Negative (Negative); Leukocyte Esterase,Urine Trace (Negative); Nitrite,Urine Negative (Negative); Protein,Urine Negative (Negative); Specific Gravity,Urine 1.008 (1.001-1.035); Squamous Epithelial Cell,Urine <1 /hpf (0-4); Urobilinogen,Urine <2.0 mg/dL (<2.0); WBC,Urine 7 /hpf (0-5)
[2021-12-20] MEDS ORDERED: NALOXONE 0.4 MG/ML 1 ML VIAL IV PRN (12:31)
[2021-12-20] MEDS ORDERED: SODIUM CHLORIDE 0.9% 500 ML IV STA (12:33)
[2021-12-20] MEDS ORDERED: NITROFURANTOIN MONOHYD/M-CRYST 100 MG CAP PO STA (12:33)
[2021-12-20] MEDS ORDERED: NITROGLYCERIN SL TABS 0.4 MG TAB SUBLINGUAL PRN (15:37)
[2021-12-20] MEDS ORDERED: BACLOFEN 10 MG TAB PO PRN (15:37)
[2021-12-20] MEDS ORDERED: ACETAMINOPHEN TAB 500 MG TAB PO STA (16:11)
[2021-12-20] MEDS ORDERED: LOSARTAN 50 MG TAB PO SCH (21:00)
[2021-12-20] MEDS ORDERED: atenoloL 50 MG TAB PO SCH (21:00)
[2021-12-20] MEDS ORDERED: PREGABALIN 100 MG CAP PO SCH (21:00)
[2021-12-20] MEDS ORDERED: ATORVASTATIN 20 MG TAB PO SCH (21:00)
[2021-12-20] MEDS ORDERED: RIVAROXABAN 20 MG TAB PO SCH (21:00)
--- NOTE | 2021-12-21 02:47 | HP ---
HISTORY AND PHYSICAL CHIEF COMPLAINT: Chest pain and palpitations. HISTORY OF PRESENT ILLNESS: This 81-year-old woman with past medical history of multiple medical issues, CAD, history of DVT, being followed by Dr. Zapata in the outpatient setting, was complaining of chest pain palpitation. Patient took some nitroglycerin, had some hypotension. EMS brought the patient to [facility] and was admitted for evaluation and treatment. There is no history of fever, rigors, or chills at this time. The initial troponins are less than 0.012 and 0.018. Creatinine is 1.23. The EKG reviewed personally showed no acute changes. There is no history of any fever, rigors, or chills at this time. PAST MEDICAL HISTORY: Reviewed include atrial fibrillation, DVT, rest of the history reviewed. HOME MEDICATIONS: Again reviewed which include atenolol doses and rest of medications noted. ALLERGIES: None. FAMILY HISTORY: Reviewed includes CHF. SOCIAL HISTORY: No history of smoking, occasional alcohol intake. REVIEW OF SYSTEMS: A 14-point review is negative as mentioned earlier. PHYSICAL EXAMINATION: VITAL SIGNS: Pulse is 61, blood pressure 132/70, and respirations 18. HEENT: Conjunctivae normal. NECK: No jugular venous distention. CARDIOVASCULAR: S1, S2. RESPIRATIONS: Diminished at the basis, few scattered rhonchi. No crackles. ABDOMEN: Soft, nontender. LEGS: No edema. No swelling. NERVOUS SYSTEM: No focal deficits. SKIN: No ulcer, rash, bleeding. JOINTS: No active deforming arthropathy. LABS: Creatinine 1.6, rest of the labs noted. ASSESSMENT: 1. Chest pain, possible unstable angina. 2. Atrial fibrillation history, paroxysmal. 3. Deep vein thrombosis history. 4. Hypertension. 5. Hyperlipidemia. 6. History of multiple medical issues. RECOMMENDATION: This 81-year-old woman presented with multiple complex medical issues, we will monitor the patient closely. Repeat labs. Cardiology consultation. Acute coronary syndrome, rule out myocardial infarction. Prognosis guarded because of multiple complex medical issues. See orders for details. MMODL / IJN: [id number] /
[2021-12-21] MEDS ORDERED: LEVOTHYROXINE 50 MCG TAB PO SCH (06:30)
[2021-12-21 07:59] VITALS: BP 178/80; PULSE 55; RESP 18; TEMP 97.5
[2021-12-21 08:49] LABS: Basophils # (A) 0.07 X 10*3/uL (0.00-0.10); Eosinophils # (A) 0.26 X 10*3/uL (0.04-0.35); Eosinophils % (A) 3.9 %; HCT 37.9 % (37.2-46.3); HGB 12.6 g/dL (12.0-15.0); Immature Grans, Automated 0.1 %; Lymphocytes # (A) 1.29 X 10*3/uL (0.90-5.00); Lymphocytes % (A) 19.2 %; MCH 32.1 pg (27.0-32.0); MCHC 33.2 g/dL (32.0-37.0); MCV 96.4 fL (80.0-97.0); Mean Platelet Volume 10.8 fL (9.5-12.2); Monocytes # (A) 0.85 X 10*3/uL (0.20-1.00); Monocytes % (A) 12.6 %; NRBC Per 100 WBC 0 /100 WBCS (0.0-0.0); Neutrophils # (A) 4.24 X 10*3/uL (1.80-7.70); Neutrophils % (A) 63.2 %; Platelet Count 190 X 10*3/uL (140-440); RBC 3.93 X 10*6/uL (4.10-5.20); RDW 13.6 % (11.5-14.5); WBC 6.72 X 10*3/uL (4.50-10.00)
[2021-12-21] MEDS ORDERED: POTASSIUM CHLORIDE ER 20 MEQ TAB.ER PO SCH (09:00)
[2021-12-21] MEDS ORDERED: TRIAMTERENE-HCTZ 37.5-25MG 1 EACH TAB PO SCH (09:00)
[2021-12-21 09:18] LABS: African American GFR (CKD) 44.1 (60.0-200.0); Anion Gap 9.1 mmol/L (10.00-18.00); BUN/Creat Ratio 21.14 Ratio (12.00-20.00); Blood Urea Nitrogen 27.9 mg/dL (9.0-27.0); Calcium 9.7 mg/dL (8.7-10.3); Carbon Dioxide 27.7 mmol/L (20.0-27.5); Potassium 4.2 mmol/L (3.5-5.5)
[2021-12-21] MEDS ORDERED: ACETAMINOPHEN TAB 325 MG TAB PO PRN (10:02)
[2021-12-21] MEDS ORDERED: ISOSORBIDE MONONITRATE ER 30 MG TAB.ER.24H PO SCH (12:00)
--- NOTE | 2021-12-21 12:02 | P.CRDCN ---
History of Present Illness History of present illness: This is a pleasant 81-year-old female past medical history significant for paroxysmal atrial fibrillation on Xarelto, coronary artery disease status post two-vessel CABG (GUILLEN to LAD and SVG to diagonal) in 2004, hypertension, dyslipidemia, hypothyroidism, sciatica. She follows in the office with Dr. Aguirre. We have been asked to see in consultation for chest pain. Patient presents to the emergency department with complaints of chest discomfort, hypotension, and lightheadedness. Patient states yesterday, she was sitting in her chair, had an episode of midsternal chest discomfort, radiation to her back. It is reproducible on exam, tender to palpation. Pain was non-exertional. She states she did take Diuretic and a potassium that morning. She checked her BP and it was SBP 70s. She did take sublingual nitro x 2 for the pain, no relief. She checked her BP and the monitor read "low". She had associated lightheadedness, felt "clammy". She did not lose consciousness. She chest disco mfort resolved by the time she came to the ER. She denies any palpitations, shortness of breath, orthopnea or PND. She states her PCP put her on a diuretic, possibly for her BP. She states she has been having increased pain secondary to her sciatica. DIAGNOSTICS * EKG reveals sinus rhythm, heart rate 62, early repolarization noted in the inferior leads and V4-V6. * Echocardiogram in the office 09/2021 revealed EF of 60%, mild to moderate mitral regurgitation and mild to moderate tricuspid regurgitation * Lexiscan stress test 05/2020 revealed no reversible ischemia. EF 60%. * Cardiac catheterization 02/2016 revealed right dominant system no significant disease. LAD and diagonal occluded in the midportion. GUILLEN and vein graft to diagonal widely patent, normal systolic function * Telemetry tracings indicate sinus rhythm HR 50s-60s * Chest xray no acute cardiopulmonary process * Laboratory reviewed, CBC unremarkable, sodium 136, potassium 4.9, BUN 29, serum creatinine 1.23, magnesium 2.1, troponin negative x2. * Current home medications include atorvastatin 20 mg nightly, losartan 100 mg nightly, Xarelto 20 mg nightly, atenolol 50 mg nightly REVIEW OF SYSTEMS At the time of my exam: CONSTITUTIONAL: Denies fever or chills. CARDIOVASCULAR: Denies chest pain, shortness of breath, orthopnea, PND or palpitations. RESPIRATORY: Denies cough. GASTROINTESTINAL: Denies abdominal pain, diarrhea, constipation, nausea or vomiting. MUSCULOSKELETAL: Denies myalgias. NEUROLOGIC: Denies numbness, tingling, headache or weakness. ENDOCRINE: Denies fatigue, weight change, polydipsia or polyurina. GENITOURINARY: Denies burning, hematuria or urgency with micturation. HEMATOLOGIC: Denies history of anemia or bleeding. PHYSICAL EXAMINATION Blood pressure 178/80, heart rate 55, afebrile, oxygen saturations 98% on room air CONSTITUTIONAL: No apparent distress. HEENT: Head is normocephalic. Pupils are equal, round. Sclerae anicteric. Mucous membranes of the mouth are moist. No JVD. No carotid bruit. CHEST EXAMINATION: Lungs are clear to auscultation. No chest wall tenderness is noted on palpation or with deep breathing. HEART EXAMINATION: Regular rate and rhythm. S1, S2 heard. Systolic murmur at apex, gallops or rub. ABDOMEN: Soft, nontender. Positive bowel sounds. EXTREMITIES: 2+ peripheral pulses, mild bilateral non-pitting lower extremity edema and no calf tenderness. SKIN: warm, dry NEUROLOGIC EXAMINATION: Patient is awake, alert and oriented x3. ASSESSMENT Chest pain, non-cardiac, reproducible on exam likely musculoskeletal, acute coronary syndrome has ruled out Episode of hypotension, likely related to taking diuretic and 2 nitroglycerin Chronic back pain History of Sciatica Paroxysmal atrial fibrillation on Xarelto Coronary artery disease status post two-vessel CABG (GUILLEN to LAD and SVG to diagonal) in 2004 Hypertension Dyslipidemia Hypothyroidism PLAN An acute coronary event has been ruled out with no EKG evidence of ischemia and negative cardiac enzymes. Add Imdur 30mg daily Continue other cardiac medications No further inpatient workup from a cardiology perspective. Please re-consult if needed. Follow up with Dr. Aguirre. Thank you kindly for this consultation. Nurse practitioner note has been reviewed by physician. Signing provider agrees with the documented findings, assessment, and plan of care. 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), psoriasis, shingles >10 years ago, hx of lymphedema post op, eneida cataracts History of Any Multi-Drug Resistant Organisms: None Reported Past Surgical History: Coronary Bypass/CABG, Heart Catheterization, Hysterectomy, Tubal Ligation Additional Past Surgical History / Comment(s): 2 vessel bypass 2004, pilonidal cyst removed, pt stated had lymph node removed w/hysterectomy, dental implants rt lower side Past Anesthesia/Blood Transfusion Reactions: No Reported Reaction Past Psychological History: No Psychological Hx Reported Smoking Status: Never smoker Past Alcohol Use History: Occasional Additional Past Alcohol Use History / Comment(s): DRINKS 1 BOTTLE OF WINE PER WEEK. Past Drug Use History: None Reported - Past Family History Mother Family Medical History: Cancer, Congestive Heart Failure (CHF), Deep Vein Thrombosis (DVT), Myocardial Infarction ([place]) Additional Family Medical History / Comment(s): breast cancer Father Family Medical History: Coronary Artery Disease (CAD), Myocardial Infarction ([place]) Sister(s) Family Medical History: Cancer, Deep Vein Thrombosis (DVT) Additional Family Medical History / Comment(s): breast cancer X3 SISTERS Brother(s) Family Medical History: Neurologic Disorder Daughter(s) Family Medical History: No Reported History Son(s) Family Medical History: No Reported History Additional Family Medical History / Comment(s): nephew in high school from [place] Medications and Allergies Home Medications Medication Instructions Recorded Confirmed Type Levothyroxine Sodium [Synthroid] 50 mcg PO AC-BRKFST 06/07/15 12/20/21 History Losartan Potassium 100 mg PO HS 06/07/15 12/20/21 History Nitroglycerin Sl Tabs [Nitrostat] 0.4 mg SL Q5M PRN 10/01/17 12/20/21 History atenoloL [Tenormin] 50 mg PO HS #60 tab 10/03/17 12/20/21 Rx Atorvastatin [Lipitor] 20 mg PO HS 12/20/21 12/20/21 History Baclofen [Lioresal] 10 mg PO ONCE PRN 12/20/21 12/20/21 History Potassium Chloride [Klor-Con M20] 20 meq PO DAILY 12/20/21 12/20/21 History Pregabalin [Lyrica] 100 mg PO HS 12/20/21 12/20/21 History Rivaroxaban [Xarelto] 20 mg PO HS 12/20/21 12/20/21 History Triamterene-Hctz 37.5-25Mg 1 tab PO DAILY 12/20/21 12/20/21 History [Maxzide 37.5-25] Acetaminophen Tab [Tylenol] 650 mg PO Q6HR PRN tab 12/21/21 Rx Isosorbide Mononitrate ER [Imdur] 30 mg PO DAILY #90 tab 12/21/21 Rx cefUROXime axetiL [Ceftin] 500 mg PO BID 3 Days #6 tab 12/21/21 Rx Allergies Allergy/AdvReac Type Severity Reaction Status Date / Time No Known Allergies Allergy Verified 12/20/21 12:30 Physical Exam Vitals: Vital Signs Temp Pulse Pulse Resp BP BP Pulse Ox 12/21/21 02:31 97.6 F 57 L 16 195/87 97 12/20/21 20:00 97.7 F 64 18 147/69 96 12/20/21 17:55 20 12/20/21 17:03 97.8 F 60 20 140/89 97 12/20/21 16:24 97.8 F 63 20 145/91 96 12/20/21 12:30 97.8 F 64 18 134/88 97 12/20/21 10:32 97.6 F 61 18 132/78 99 Intake and Output 12/20/21 12/21/21 12/21/21 22:59 06:59 14:59 Other: Voiding Method Toilet # Voids 2 Weight 106.594 kg Results 12/21/21 05:05 12/21/21 05:05 Cardiac Enzymes 12/20/21 12/20/21 12/20/21 Range/Units 11:06 11:06 14:18 AST 25 (14-36) U/L Troponin I <0.012 0.018 (0.000-0.034) ng/mL Coagulation 12/20/21 Range/Units 11:06 PT 11.2 (9.0-12.0) sec APTT 27.7 (22.0-30.0) sec CBC 12/20/21 Range/Units 11:06 WBC 6.2 (3.8-10.6) k/uL RBC 3.97 (3.80-5.40) m/uL Hgb 12.5 (11.4-16.0) gm/dL Hct 37.8 (34.0-46.0) % Plt Count 178 (150-450) k/uL Comprehensive Metabolic Panel 12/20/21 Range/Units 11:06 Sodium 136 L (137-145) mmol/L Potassium 4.9 (3.5-5.1) mmol/L Chloride 102 (98-107) mmol/L Carbon Dioxide 25 (22-30) mmol/L BUN 29 H (7-17) mg/dL Creatinine 1.23 H (0.52-1.04) mg/dL Glucose 85 (74-99) mg/dL Calcium 9.5 (8.4-10.2) mg/dL AST 25 (14-36) U/L ALT 23 (4-34) U/L Alkaline Phosphatase 78 (38-126) U/L Total Protein 6.1 L (6.3-8.2) g/dL Albumin 3.7 (3.5-5.0) g/dL Current Medications Generic Name Dose Route Start Last Admin Trade Name Freq PRN Reason Stop Dose Admin Atenolol 50 mg 12/20/21 21:00 12/20/21 21:21 Atenolol 50 Mg Tab PO 50 mg HS ANDREW Administration Atorvastatin Calcium 20 mg 12/20/21 21:00 12/20/21 21:21 Atorvastatin 20 Mg Tab PO 20 mg HS ANDREW Administration Levothyroxine Sodium 50 mcg 12/21/21 06:30 12/21/21 05:45 Levothyroxine 50 Mcg Tab PO 50 mcg 0630 ANDREW Administration Losartan Potassium 100 mg 12/20/21 21:00 12/20/21 21:21 Losartan 50 Mg Tab PO 100 mg HS ANDREW Administration Naloxone HCl 0.2 mg 12/20/21 12:31 Naloxone 0.4 Mg/Ml 1 Ml Vial IV Q2M PRN Opioid Reversal Nitroglycerin 0.4 mg 12/20/21 15:37 Nitroglycerin Sl Tabs 0.4 Mg Tab SUBLINGUAL Q5M PRN Chest Pain Potassium Chloride 20 meq 12/21/21 09:00 Potassium Chloride Er 20 Meq Tab.Er PO DAILY ANDREW Pregabalin 100 mg 12/20/21 21:00 10/06/22 21:21 Pregabalin 100 Mg Cap PO 100 mg HS ANDREW Administration Rivaroxaban 20 mg 12/20/21 21:00 12/20/21 21:21 Rivaroxaban 20 Mg Tab PO 20 mg HS ANDREW Administration Protocol Triamterene/Hydrochlorothiazide 1 each 12/21/21 09:00 Triamterene-Hctz 37.5-25mg 1 Each Tab PO DAILY ANDREW Intake and Output 12/20/21 12/21/21 12/21/21 22:59 06:59 14:59 Other: Voiding Method Toilet # Voids 2 Weight 106.594 kg 12/20/21 11:06 12/20/21 11:06
--- NOTE | 2021-12-22 09:58 | P.DS ---
Providers Date of admission: 12/20/21 12:02 Expected date of discharge: 12/21/21 Attending physician: Christiano Gloria MD Consults: 12/20/21 12:48 Consult Physician Routine Consulting Provider: Glenda Aguirre Consult Reason/Comments: chest pain Do you want consulting provider notified?: Yes Primary care physician: Heri Benny [facility] Course: Final Diagnosis chest pain, possible unstable angina history of paroxysmal atrial fibrillation history of deep vein thrombosis hypertension hyperlipidemia morbid obesity full code Discharge disposition Patient is being discharged in a stable condition with guarded prognosis to home. Patient will follow-up with Dr. Zapata in the outpatient setting upon discharge. Patient is to follow up with Dr. Aguirre cardiology as scheduled. Total time taken is greater than 35 minutes. Hospital course This is a 81-year-old female who was recently admitted with chest pain which was relieved with nitro. Patient was maintained on telemetry monitoring and was evaluated by cardiology recommending follow up outpatient. Patient reports she is chest pain free, hungry, and extremely anxious to go home. Patient to follow up with pcp outpatient as well. Continue daily aspirin per cardiology.Currently no reports of chest pain, shortness of breath, or palpitations. Patient is afebrile. No reports of nausea or vomiting and patient is tolerating diet. Patient will be discharged home today. guarded prognosis. Physical exam: Gen: This is a 81 year old female who is awake, alert and oriented x3. obese HEENT: Head is atraumatic, normocephalic. Pupils equal, round. Sclerae is anicteric. NECK: Supple. No JVD. No lymphadenopathy. No thyromegaly. LUNGS: diminished breath sounds bilaterally with no wheezing or rhonchi noted No intercostal retractions. HEART: S1, S2 muffled ABDOMEN: Soft. Bowel sounds are present. No masses. No tenderness. EXTREMITIES: No pedal edema. No calf tenderness. NEUROLOGICAL: Patient is awake, alert and oriented x3. Cranial nerves 2 through 12 are grossly intact. Please refer to medication reconciliation sheet for a list of medications. The impression and plan of care has been dictated by Bree Dhillon, Nurse Practitioner as directed. Dr. Amarjit MD I have performed a history and examination and MDM of this patient, discussed the same with the dictator, and agree with the dictator's assessment and plan as written ,documented as a scribe. Based on total visit time, I have performed more than 50% of the visit. Patient Condition at Discharge: Stable Plan - Discharge Summary New Discharge Prescriptions: New Acetaminophen Tab [Tylenol] 650 mg PO Q6HR PRN tab PRN Reason: Fever And/ Or Pain cefUROXime axetiL [Ceftin] 500 mg PO BID 3 Days #6 tab Isosorbide Mononitrate ER [Imdur] 30 mg PO DAILY #90 tab Continue Losartan Potassium 100 mg PO HS Levothyroxine Sodium [Synthroid] 50 mcg PO AC-BRKFST Nitroglycerin Sl Tabs [Nitrostat] 0.4 mg SL Q5M PRN PRN Reason: Chest Pain atenoloL [Tenormin] 50 mg PO HS #60 tab Atorvastatin [Lipitor] 20 mg PO HS Baclofen [Lioresal] 10 mg PO ONCE PRN PRN Reason: Muscle Spasm Triamterene-Hctz 37.5-25Mg [Maxzide 37.5-25] 1 tab PO DAILY Pregabalin [Lyrica] 100 mg PO HS Rivaroxaban [Xarelto] 20 mg PO HS Potassium Chloride [Klor-Con M20] 20 meq PO DAILY Discharge Medication List Levothyroxine Sodium [Synthroid] 50 mcg PO AC-BRKFST 06/07/15 [History] Losartan Potassium 100 mg PO HS 06/07/15 [History] Nitroglycerin Sl Tabs [Nitrostat] 0.4 mg SL Q5M PRN 10/01/17 [History] atenoloL [Tenormin] 50 mg PO HS #60 tab 10/03/17 [Rx] Atorvastatin [Lipitor] 20 mg PO HS 12/20/21 [History] Baclofen [Lioresal] 10 mg PO ONCE PRN 12/20/21 [History] Potassium Chloride [Klor-Con M20] 20 meq PO DAILY 12/20/21 [History] Pregabalin [Lyrica] 100 mg PO HS 12/20/21 [History] Rivaroxaban [Xarelto] 20 mg PO HS 12/20/21 [History] Triamterene-Hctz 37.5-25Mg [Maxzide 37.5-25] 1 tab PO DAILY 12/20/21 [History] Acetaminophen Tab [Tylenol] 650 mg PO Q6HR PRN tab 12/21/21 [Rx] Isosorbide Mononitrate ER [Imdur] 30 mg PO DAILY #90 tab 12/21/21 [Rx] cefUROXime axetiL [Ceftin] 500 mg PO BID 3 Days #6 tab 12/21/21 [Rx] Follow up Appointment(s)/Referral(s): Glenda Aguirre MD [STAFF PHYSICIAN] - 2 Weeks (CARDIOLOGY OFFICE WILL CONTACT YOU WITH APPOINTMENT DATE AND TIME.) Heri Zapata MD [Primary Care Provider] - 1-2 days (PLEASE CALL AND MAKE APPOINTMENT.) Patient Instructions/Handouts: Cefuroxime (By mouth), Isosorbide Mononitrate (By mouth), Urinary Tract Infection in Women (DC), Heart Healthy Diet (DC), Noncardiac Chest Pain (DC) Activity/Diet/Wound Care/Special Instructions: Activity Limited until follow-up Follow-up with primary care provider on discharge Follow-up with cardiology as discussed Continue taking medications as prescribed Continue heart healthy diet Continue the antibiotics for 3 days Discharge Disposition: HOME SELF-CARE
== END 2021-12-21 13:06 | disposition home or self-care (01) ==
LOC: EC 09:51 → 6NMEDSUR 12:02
PROVIDERS: ADMIT Internal Medicine; ATTEND Internal Medicine
DX: R07.9 Chest pain, unspecified (principal); R00.2 Palpitations; E86.0 Dehydration; I48.0 Paroxysmal atrial fibrillation; E78.5 Hyperlipidemia, unspecified; I10 Essential (primary) hypertension; I25.10 Atherosclerotic heart disease of native coronary artery without angina pectoris; M54.30 Sciatica, unspecified side; E66.01 Morbid (severe) obesity due to excess calories; Z68.41 Body mass index [BMI] 40.0-44.9, adult; Z86.718 Personal history of other venous thrombosis and embolism; Z85.42 Personal history of malignant neoplasm of other parts of uterus; Z90.710 Acquired absence of both cervix and uterus; E03.9 Hypothyroidism, unspecified; Z98.51 Tubal ligation status; I08.1 Rheumatic disorders of both mitral and tricuspid valves; G89.29 Other chronic pain; M54.9 Dorsalgia, unspecified; Z85.828 Personal history of other malignant neoplasm of skin; Z86.19 Personal history of other infectious and parasitic diseases; L40.9 Psoriasis, unspecified; Z98.890 Other specified postprocedural states; Z95.1 Presence of aortocoronary bypass graft; Z97.2 Presence of dental prosthetic device (complete) (partial); Z82.49 Family history of ischemic heart disease and other diseases of the circulatory system; Z80.3 Family history of malignant neoplasm of breast; Z79.01 Long term (current) use of anticoagulants; Z79.890 Hormone replacement therapy; Z79.899 Other long term (current) drug therapy; Z82.0 Family history of epilepsy and other diseases of the nervous system
CPT/HCPCS: 96361 ×3; 96360; 99285; 36415; 93005; 80053; 80048; 83735; 84484; 85025 ×2; 85610; 85730; 81001; 71046; G0378 ×2

== ENCOUNTER → 2022-03-05 | Outpatient (CLI) | payer MEDICARE ==
--- NOTE | 2022-03-05 09:59 | US ---
EXAMINATION TYPE: US duplex aorta DATE OF EXAM: 03/05/2022 COMPARISON: NONE CLINICAL HISTORY: I71.40 ABDOMINAL AORTIC ANEURYSM, WITHOUT RUPTURE. Abnormal imaging on Chiropractor exam TECHNIQUE: Multiple sonographic images of the abdominal aorta are obtained. FINDINGS: EXAM MEASUREMENTS: Abdominal Aorta: AP x Width Proximal: 2.3 x 2.1cm Mid: 1.8 x 1.8cm Distal: 1.7 x 1.7cm Bifurcation: LAURE 1.4 x 1.2cm JAROCHO 1.4 x 1.1cm INTERMODAL DISPATCHER NOTES: Atherosclerotic changes. No ultrasound evidence for abdominal aortic aneurysm. IMPRESSION: No ultrasound evidence of abdominal aortic aneurysm.
== END | disposition home or self-care (01) ==
LOC: RADUSWWP 09:32
PROVIDERS: ATTEND Internal Medicine Geriatric Medicine
DX: I71.40 Abdominal aortic aneurysm, without rupture, unspecified (principal)
CPT/HCPCS: 93979

== ENCOUNTER → 2022-05-29 | Outpatient (CLI) | payer MEDICARE ==
--- NOTE | 2022-05-29 17:24 | BD ---
EXAMINATION TYPE: Axial Bone Density DATE OF EXAM: 05/29/2022 CLINICAL HISTORY: 81 year old Female. ICD-10 CODE: M81.0 OSTEOPOROSIS Height: 61.25 Weight: 239 FRAX RISK QUESTIONS: Family History (Parent hip fracture): no History of Fracture in Adulthood: no Secondary Osteoporosis: no RISK FACTORS HISTORY OF: Family History of Osteoporosis: no Active: no Diet low in dairy products/other sources of calcium: yes Postmenopausal woman: yes Lost more than 2 inches in height since high school: yes was 64 inches Frequent falls: no Poor Health: yes MEDICATIONS: Thyroid Medications: yes Which medication: Levothyroxine How Lon+ years Additional Medications: yes cholesterol, heart meds, bp meds, blood thinner Additional History: yes CKD, endometrial cancer 2009 EXAM MEASUREMENTS: Bone mineral densitometry was performed using the [employer] System. Bone mineral density as measured about the Lumbar spine is: ----- L1-L4(G/cm2): 1.380 T Score Values are as follows: ----- L1: 1.1 ----- L2: 1.1 ----- L3: 2.3 ----- L4: 1.9 ----- L1-L4: 1.7 Z Score Values are as follows: ----- L1: 1.8 ----- L2: 1.8 ----- L3: 3.0 ----- L4: 2.5 ----- L1-L4: 2.3 Bone mineral density has: Decreased -2.7% since study of: 12/14/2019 Bone mineral density about the R hip (g/cm2): 0.965 Bone mineral density about the L hip (g/cm2): 0.992 T Score values are as follows: -----R Neck: -1.4 -----L Neck: -1.8 -----R Total: -0.3 -----L Total: -0.1 Z Score values are as follows: -----R Neck: 0.0 -----L Neck: -0.4 -----R Total: 0.9 -----L Total: 1.1 Bone mineral density has: Increased 1.3% since study of: 12/14/2019 FRAX%s: The graph provided illustrates a 12.4% chance for a major osteoporotic fx and a 3.2% chance f or the hips probability for fx in 10 years time. IMPRESSION: Osteopenia (T Score between -2.5 and -1). There is slightly increased risk of fracture and the patient may be considered for treatment. Re-Screen 2-5 years. NOTE: T-SCORE=SD OF THE YOUNG ADULT MEAN.
--- NOTE | 2022-05-30 07:40 | MM ---
Reason for Exam: Screening (asymptomatic). Last mammogram was performed 3 year(s) and 1 month(s) ago. Patient History: Menarche at age 11. First Full-Term at age 24. Left ovary removed at age 69. Right ovary removed at age 69. Hysterectomy at age 69. Postmenopausal. Endometrial cancer, age 69. Sister had breast cancer, age 50. Sister had breast cancer, age 50. Sister had breast cancer, age 50. Mother had breast cancer, age 50. Risk Values: Joy 5 year model risk: 7.3%. NCI Lifetime model risk: 11.0%. Prior Study Comparison: 05/16/2015 Bilateral Screening Mammogram, [facility]. 07/22/2017 Bilateral Screening Mammogram, [facility]. 04/28/2019 Bilateral Screening Mammogram, [facility]. Tissue Density: The breast tissue is almost entirely fat. Findings: Analyzed By CAD. There is no suspicious group of microcalcifications or new suspicious mass in either breast. Overall Assessment: Negative, BI-RAD 1 Management: Screening Mammogram of both breasts in 1 year. A clinical breast exam by your physician is recommended on an annual basis and results should be correlated with mammographic findings. [facility] will attempt to contact patient to return for supplemental views and ultrasound if indicated. Electronically signed and approved by: Eduar Rivera DO
== END | disposition home or self-care (01) ==
LOC: RADMAMWWP 14:52
PROVIDERS: ATTEND Internal Medicine Geriatric Medicine
DX: Z12.31 Encounter for screening mammogram for malignant neoplasm of breast (principal); M81.0 Age-related osteoporosis without current pathological fracture; M85.89 Other specified disorders of bone density and structure, multiple sites
CPT/HCPCS: 77063; 77067; 77080

== ENCOUNTER 2023-01-08 08:43 | Day surgery (SDC) | payer MEDICARE ==
[~2023-01-08 08:43] MED LIST: LACTATED RINGERS 1,000 ML IV SCH; TETRACAINE 0.5% OPHTH (PF) DROPS 4 ML BTL OP PRN
[2023-01-08] MEDS: CYCLOPENTOLATE 1% OPHTH SOLN 2 ML BTL OP PRN ×3 (10:25→10:37)
[2023-01-08] MEDS: PHENYLEPHRINE 2.5% OPHTH DRP 2ML OP PRN ×3 (10:28→10:40)
[2023-01-08 10:43] VITALS: RESP 16; TEMP 99.5
[2023-01-08] MEDS ORDERED: MIDAZOLAM 2 MG/2 ML VIAL ONE (11:06)
[2023-01-08] MEDS ORDERED: fentaNYL (PF) 50 MCG/ML 2 ML AMP ONE (11:06)
[2023-01-08] MEDS ORDERED: EPINEPHrine (PF) 0.3 ML in BALANCED SALT IRRIG SOLN COMB2 500 ML IRRIGATION ONE (11:15)
[2023-01-08] MEDS ORDERED: HYALURONATE SODIUM INTRAOCULAR 1 EACH SYRINGE (12MG/ML) INTRAOCULA ONE ×2 (11:15→11:20)
[2023-01-08] MEDS ORDERED: LIDOCAINE 1% (PF) 10MG/ML VIAL MISCELLANE ONE ×2 (11:16→11:20)
[2023-01-08] MEDS ORDERED: BALANCED SALT IRRIG SOLN COMB2 15 ML IRRIG.SOLN INTRAOCULA ONE ×2 (11:16→11:20)
[2023-01-08] MEDS: MOXIFLOXACIN HCL 0.5% DROPS 3 ML BTL OP PRN ×2 (11:17→11:31)
[2023-01-08] MEDS: TIMOLOL 0.5% OPHTH DROPS 5 ML BTL OP PRN ×2 (11:17→11:31)
--- NOTE | 2023-01-08 11:33 | P.OP ---
Date of Procedure: 01/08/23 Preoperative Diagnosis: NS & CS & PSC Postoperative Diagnosis: same Procedure(s) Performed: PIOL, OD Implants: [id number] 14.50 Anesthesia: MAC Surgeon: [place] Pathology: none sent Condition: stable Disposition: same day Indications for Procedure: blurry vision Operative Findings: no complications
[2023-01-08 12:05] VITALS: BP 168/74; PULSE 63
--- NOTE | 2023-01-08 19:14 | OP ---
OPERATIVE REPORT DATE OF SERVICE : 01/08/2023 PREOPERATIVE DIAGNOSES: Nuclear sclerosis, cortical sclerosis, and posterior subcapsular cataract, right eye. POSTOPERATIVE DIAGNOSES: Nuclear sclerosis, cortical sclerosis, and posterior subcapsular cataract, right eye. OPERATION: Phacoemulsification of cataract and interocular lens implant, right eye. ESTIMATED BLOOD LOSS: Zero. SPECIMEN TAKEN: None. NARRATIVE: After obtaining the appropriate consent, the patient was brought to the operating room where the patient was placed under cardiac monitoring and prepped and draped in the usual sterile manner. At the 11 o'clock position, a 15-degree super sharp blade was used to create a paracentesis followed by instillation of 1% Xylocaine MPF 50:50 mix with BSS into the anterior chamber. This was followed by Amvisc viscoelastic to stabilize the anterior chamber. At the 9 o'clock position a self-sealing corneal flap incision was created using 2.8 mm jossie keratome. A cystotome was used to initiate a continuous tear capsulorrhexis which was completed with the Utrata forceps. A Binkhorst cannula was used to hydrodissect the lens nucleus followed by hydrodelineation. Phacoemulsification of the lens was performed utilizing phaco chop in 13.51 seconds at 11.3% power. The remaining cortical material was removed using the irrigation aspiration mode followed by additional 1% Xylocaine MPF into the anterior chamber followed by viscoelastic to stabilize the capsular bag. A Bausch [employer] Lomb MX60E 14.5 diopter posterior chamber lens was placed into the capsular bag without difficulty. The remaining viscoelastic material was removed from the anterior chamber with the irrigation/aspiration. Balanced salt solution was used to normalize the intraocular pressure. The incision was checked for watertight integrity. The patient then received 2 drops of 0.5% timolol followed by 2 drops Vigamox, was lightly patched and shielded in the usual manner. There were no complications from the procedure. The patient tolerated the procedure well and was returned to recovery in good condition. MMODL / IJN: [id number] /
== END 2023-01-08 12:18 | disposition home or self-care (01) ==
LOC: OR 08:43
PROVIDERS: ATTEND Ophthalmology
DX: H25.11 Age-related nuclear cataract, right eye (principal); H25.041 Posterior subcapsular polar age-related cataract, right eye; H35.3131 Nonexudative age-related macular degeneration, bilateral, early dry stage; H00.023 Hordeolum internum right eye, unspecified eyelid; H52.4 Presbyopia; I25.10 Atherosclerotic heart disease of native coronary artery without angina pectoris; I48.91 Unspecified atrial fibrillation; E78.5 Hyperlipidemia, unspecified; I12.9 Hypertensive chronic kidney disease with stage 1 through stage 4 chronic kidney disease, or unspecified chronic kidney disease; N18.9 Chronic kidney disease, unspecified; E03.9 Hypothyroidism, unspecified; K21.9 Gastro-esophageal reflux disease without esophagitis; Z79.890 Hormone replacement therapy; Z79.01 Long term (current) use of anticoagulants; Z79.899 Other long term (current) drug therapy
CPT/HCPCS: 66984; C1780; J2250; J0171; J3010; J2001

== ENCOUNTER 2023-01-22 09:04 | Day surgery (SDC) | payer MEDICARE ==
[~2023-01-22 09:04] MED LIST changes: +LIDOCAINE 1% (10MG/ML) FOR IV START INTRADERMA PRN; +MOXIFLOXACIN HCL 0.5% DROPS 3 ML BTL OP PRN; +TIMOLOL 0.5% OPHTH DROPS 5 ML BTL OP PRN
[2023-01-22 10:15] VITALS: RESP 18; TEMP 97.5
[2023-01-22] MEDS: CYCLOPENTOLATE 1% OPHTH SOLN 2 ML BTL OP PRN ×3 (10:16→10:28)
[2023-01-22] MEDS: PHENYLEPHRINE 2.5% OPHTH DRP 2ML OP PRN ×3 (10:19→10:31)
[2023-01-22] MEDS ORDERED: MIDAZOLAM 2 MG/2 ML VIAL IVP ONE (10:26)
[2023-01-22] MEDS ORDERED: fentaNYL (PF) 50 MCG/ML 2 ML AMP ONE (12:09)
[2023-01-22] MEDS ORDERED: MIDAZOLAM 2 MG/2 ML VIAL ONE (12:09)
[2023-01-22] MEDS ORDERED: LIDOCAINE 1% (PF) 10MG/ML VIAL MISCELLANE ONE (12:25)
[2023-01-22] MEDS ORDERED: EPINEPHrine (PF) 0.3 ML in BALANCED SALT IRRIG SOLN COMB2 500 ML IRRIGATION ONE (12:26)
[2023-01-22] MEDS ORDERED: HYALURONATE SODIUM INTRAOCULAR 1 EACH SYRINGE (12MG/ML) INTRAOCULA ONE (12:27)
--- NOTE | 2023-01-22 12:36 | P.OP ---
Date of Procedure: 01/22/23 Preoperative Diagnosis: nS & cs & psc Postoperative Diagnosis: same Procedure(s) Performed: PIOL, OS Implants: [id number] 12.50 Anesthesia: MAC Surgeon: [place] Pathology: none sent Condition: stable Disposition: same day Indications for Procedure: blurry vision Operative Findings: no complications
[2023-01-22 13:12] VITALS: BP 178/76; PULSE 52
--- NOTE | 2023-01-24 09:46 | OP ---
OPERATIVE REPORT DATE OF SERVICE : 01/22/2023 PROCEDURE PERFORMED: Phacoemulsification of cataract and intraocular lens implant of the left eye. PREOPERATIVE DIAGNOSES: Nuclear sclerosis, cortical sclerosis, posterior subcapsular cataract. POSTOPERATIVE DIAGNOSIS: Nuclear sclerosis, left eye. OPERATION: Phacoemulsification of cataract and interocular lens implant, left eye. ESTIMATED BLOOD LOSS: Zero. SPECIMEN TAKEN: None. NARRATIVE: After obtaining the appropriate consent, the patient was brought to the operating room where the patient was placed under cardiac monitoring and prepped and draped in the usual sterile manner. At the 5 o'clock position, a 15-degree super sharp blade was used to create a paracentesis followed by instillation of 1% Xylocaine MPF 50:50 mix with BSS into the anterior chamber. This was followed by Amvisc viscoelastic to stabilize the anterior chamber. At the 3 o'clock position a self-sealing corneal flap incision was created using 2.8 mm jossie keratome. A cystotome was used to initiate a continuous tear capsulorrhexis which was completed with the Utrata forceps. A Binkhorst cannula was used to hydrodissect the lens nucleus followed by hydrodelineation. Phacoemulsification of the lens was performed utilizing phacochop in 12.5 seconds at 13.7% power. The remaining cortical material was removed using the irrigation aspiration mode followed by additional 1% Xylocaine MPF into the anterior chamber followed by viscoelastic to stabilize the capsular bag. A [employer]ausch and Lomb MX60E 12.5 diopter posterior chamber lens was placed into the capsular bag without difficulty. The remaining viscoelastic material was removed from the anterior chamber with the irrigation/aspiration. Balanced salt solution was used to normalize the intraocular pressure. The incision was checked for watertight integrity. The patient then received 2 drops of 0.5% timolol followed by 2 drops Vigamox, was lightly patched and shielded in the usual manner. There were no complications from the procedure. The patient tolerated the procedure well and was returned to recovery in good condition MMODL / IJN: [id number] /
== END 2023-01-22 13:15 | disposition home or self-care (01) ==
LOC: OR 09:04
PROVIDERS: ATTEND Ophthalmology
DX: H25.12 Age-related nuclear cataract, left eye (principal); I25.10 Atherosclerotic heart disease of native coronary artery without angina pectoris; I49.9 Cardiac arrhythmia, unspecified; I48.91 Unspecified atrial fibrillation; Z86.718 Personal history of other venous thrombosis and embolism; E07.9 Disorder of thyroid, unspecified; K21.9 Gastro-esophageal reflux disease without esophagitis; Z79.890 Hormone replacement therapy; Z79.01 Long term (current) use of anticoagulants; Z98.890 Other specified postprocedural states; Z79.899 Other long term (current) drug therapy
CPT/HCPCS: 66982; C1780; J2250; J0171; J3010; J2001

== ENCOUNTER 2024-02-15 13:24 | Emergency (ER) | payer MEDICARE ==
[2024-02-15 13:33] VITALS: TEMP 97.3
--- NOTE | 2024-02-15 13:42 | ED ---
Fall HPI - General Chief Complaint: Fall Stated Complaint: Fall/Face Time Seen by Provider: 02/15/24 13:34 Source: patient, family, RN notes reviewed Mode of arrival: ambulatory Limitations: no limitations - History of Present Illness Initial Comments: 83-year-old female presents emergency department from urgent care with chief complaint of head injury, facial injury. Patient states she was asleep rolled out of bed around 1:30 AM this morning. Patient states she is on Xarelto for prior blood clot. Patient states that she struck her face on the ground she has some amount of bleeding from her nasal bridge area. Patient states she has some swelling, bruising around both of her eyes she does complain of facial pain, mild headache denies any neck pain denies any extremity injuries denies any chest pain or shortness of breath. Patient was seen in urgent care sent here secondary to fall on blood thinners. - Related Data Home Medications Medication Instructions Recorded Confirmed Levothyroxine Sodium [Synthroid] 75 mcg PO AC-BRKFST 06/07/15 01/22/23 Atorvastatin [Lipitor] 20 mg PO Q2D 12/20/21 01/20/23 Potassium Chloride [Klor-Con M20] 20 meq PO DAILY 12/20/21 01/22/23 Rivaroxaban [Xarelto] 20 mg PO W/SUPPER 12/20/21 01/22/23 Calcium Carbonate/Vitamin D3 1 tab PO Q2D 01/06/23 01/22/23 [Calcium 500Mg-Vit D3 15 mcg (600 unit)] Cholecalciferol (Vitamin D3) 2,000 unit PO DAILY 01/06/23 01/22/23 [Vitamin D3 (50 Mcg = 2000 Iu) Chew Tab] Losartan Potassium 25 mg PO BID 01/06/23 01/22/23 Ubidecarenone [Co Q-10] 400 mg PO Q2D 01/06/23 01/22/23 Previous Rx's Medication Instructions Recorded atenoloL [Tenormin] 50 mg PO HS #60 tab 10/03/17 Acetaminophen Tab [Tylenol] 650 mg PO Q6HR PRN tab 12/21/21 Allergies Allergy/AdvReac Type Severity Reaction Status Date / Time No Known Allergies Allergy Verified 02/15/24 13:28 Review of Systems ROS Statement: Those systems with pertinent positive or pertinent negative responses have been documented in the HPI. ROS Other: All systems not noted in ROS Statement are negative. Past Medical History Past Medical History: Atrial Fibrillation, Coronary Artery Disease (CAD), Cancer, Deep Vein Thrombosis (DVT), Eye Disorder, GERD/Reflux, Hyperlipidemia, Hypertension, Thyroid Disorder Additional Past Medical History / Comment(s): uterine cancer 2009 with DVT after hysterectomy, hemorrhoids, squamous cell skin ca, psoriasis, shingles >10 years ago, hx of lymphedema post op History of Any Multi-Drug Resistant Organisms: None Reported Past Surgical History: Coronary Bypass/CABG, Heart Catheterization, Hysterectomy, Tubal Ligation Additional Past Surgical History / Comment(s): 2 vessel bypass 2004, pilonidal cyst removed, pt stated had lymph node removed w/ hysterectomy, dental implants rt lower side, skin cancer removal, right cataract removal Past Anesthesia/Blood Transfusion Reactions: No Reported Reaction Past Psychological History: No Psychological Hx Reported Smoking Status: Never smoker Past Alcohol Use History: Occasional Past Drug Use History: None Reported - Past Family History Mother Family Medical History: Cancer, Congestive Heart Failure (CHF), Deep Vein Thrombosis (DVT), Myocardial Infarction ([place]) Additional Family Medical History / Comment(s): breast cancer Father Family Medical History: Coronary Artery Disease (CAD), Myocardial Infarction ([place]) Sister(s) Family Medical History: Cancer, Deep Vein Thrombosis (DVT) Additional Family Medical History / Comment(s): breast cancer X3 SISTERS Brother(s) Family Medical History: Neurologic Disorder Daughter(s) Family Medical History: No Reported History Son(s) Family Medical History: No Reported History Additional Family Medical History / Comment(s): nephew in high school from [place] General Exam Limitations: no limitations General appearance: alert, in no apparent distress Head exam: Present: atraumatic, normocephalic, normal inspection Eye exam: Present: normal appearance, PERRL, EOMI, periorbital swelling, periorbital tenderness (Bilateral periorbital ecchymosis noted). Absent: scleral icterus, conjunctival injection ENT exam: Present: normal oropharynx, mucous membranes moist, TM's normal bilaterally, normal external ear exam, other (Small scabbing, wound across nasal bridge with tenderness over the nasal bridge) Neck exam: Present: normal inspection, full ROM. Absent: tenderness, meningismus, lymphadenopathy Respiratory exam: Present: normal lung sounds bilaterally. Absent: respiratory distress, wheezes, rales, rhonchi, stridor Cardiovascular Exam: Present: regular rate, normal rhythm, normal heart sounds. Absent: systolic murmur, diastolic murmur, rubs, gallop, clicks Course Vital Signs 02/15/24 02/15/24 13:28 14:29 Temperature 97.3 F L Pulse Rate 60 61 Respiratory 18 20 Rate Blood Pressure 203/102 185/89 O2 Sat by Pulse 99 99 Oximetry Medical Decision Making - Medical Decision Making Was pt. sent in by a medical professional or institution (DEXTER Ramos, LICENSED BONDSMAN, urgent care, hospital, or assisted...) When possible be specific @ -Urgent care Did you speak to anyone other than the patient for history (EMS, parent, family, police, friend...)? What history was obtained from this source @ -No Did you review nursing and triage notes (agree or disagree)? Why? @ -I reviewed and agree with nursing and triage notes Were old charts reviewed (outside hosp., previous admission, EMS record, old EKG, old radiological studies, urgent care reports/EKG's, assisted records)? Report findings @ -No old charts were reviewed Differential Diagnosis (chest pain, altered mental status, abdominal pain women, abdominal pain men, vaginal bleeding, weakness, fever, dyspnea, syncope, headache, dizziness, GI bleed, back pain, seizure, CVA, palpatations, mental health, musculoskeletal)? @ -Fall, facial fracture, intracranial mass, skull fracture, cervical fracture EKG interpreted by me (3pts min.). @ -None X-rays interpreted by me (1pt min.). @ -None done CT interpreted by me (1pt min.). @ -CT brain, C-spine showing no acute intracranial hemorrhage, mass effect no cervical fracture CT facial bones no acute facial bone fracture hematoma noted U/S interpreted by me (1pt. min.). @ -None done What testing was considered but not performed or refused? (CT, X-rays, U/S, labs)? Why? @ -None What meds were considered but not given or refused? Why? @ -None Did you discuss the management of the patient with other professionals (professionals i.e. , DEXTER, LICENSED BONDSMAN, lab, RT, psych nurse, social service technician, blending plant operator, teacher, planned giving officer, piano case maker)? Give summary @ -No Was smoking cessation discussed for >3mins.? @ -No Was critical care preformed (if so, how long)? @ -No Were there social determinants of health that impacted care today? How? (Homelessness, low income, unemployed, alcoholism, drug addiction, transportation, low edu. Level, literacy, decrease access to med. care, prison, rehab)? @ -No Was there de-escalation of care discussed even if they declined (Discuss DNR or withdrawal of care, Hospice)? DNR status @ -No What co-morbidities impacted this encounter? (DM, HTN, Smoking, COPD, CAD, Cancer, CVA, ARF, Chemo, Hep., AIDS, mental health diagnosis, sleep apnea, morbid obesity)? @ -None Was patient admitted / discharged? Hospital course, mention meds given and route, prescriptions, significant lab abnormalities, going to OR and other pertinent info. @ -Discharge patient presented for rule out of bed, facial injury CT was obtained immediately secondary to patient being on blood thinners there is no acute fracture no intracranial hemorrhage patient is discharged in stable condition. Undiagnosed new problem with uncertain prognosis? @ -No Drug Therapy requiring intensive monitoring for toxicity (Heparin, Nitro, Insulin, Cardizem)? @ -No Were any procedures done? @ -No Diagnosis/symptom? @ -Fall, closed head injury, facial contusion Acute, or Chronic, or Acute on Chronic? @ -Acute Uncomplicated (without systemic symptoms) or Complicated (systemic symptoms)? @ -uncomplicated Side effects of treatment? @ -No Exacerbation, Progression, or Severe Exacerbation? @ -No Poses a threat to life or bodily function? How? (Chest pain, [place], [place], pneumonia, PE, COPD, DKA, ARF, appy, cholecystitis, CVA, Diverticulitis, Homicidal, Suicidal, threat to staff... and all critical care pts) @ -No Disposition Clinical Impression: Fall, Facial contusion Disposition: HOME SELF-CARE Instructions (If sedation given, give patient instructions): Head Injury (ED) Additional Instructions: Please return to the Emergency Department if symptoms worsen or any other concerns. Is patient prescribed a controlled substance at d/c from ED?: No Referrals: Heri Zapata MD [Primary Care Provider] - 1-2 days Time of Disposition: 14:34
--- NOTE | 2024-02-15 14:07 | CT ---
EXAMINATION TYPE: CT brain cspine wo con, CT facial bones wo con DATE OF EXAM: 02/15/2024 1:57 PM COMPARISON: None. CLINICAL INDICATION: Female, 83 years old with history of pain,fall on thinners; CODE COAG, Fall on t hinners, Pain (accession [id number]), Fall on thinners, CODE COAG, pain (accession [id number]) pain TECHNIQUE: Brain: Multiple axial CT images of the brain were obtained without IV contrast. Cspine: Axial CT images from the skull base to the inferior aspect of T2 we obtained without intraven ous contrast. Coronal and sagittal reformatted images were also reviewed. Facial: Axial imaging of the facial structures with sagittal and coronal reformats. CT DLP: 1258.6 mGycm, Automated exposure control for dose reduction was used. FINDINGS: Brain: Extra-axial spaces: No abnormal extra-axial fluid collections. Ventricular system: Dilatation in proportion to cerebral atrophy. Cerebral parenchyma: Cerebral atrophy. No acute intraparenchymal hemorrhage or mass effect. The vazquez -white junction is well differentiated. Scattered hypoattenuating areas are seen within the white mat ter. Cerebellum: Unremarkable. Mass effect: No evidence of midline shift. Intracranial vasculature: Dolichoectasia of the basilar artery. Soft tissues: Normal. Calvarium/osseous structures: No depressed skull fracture. Paranasal sinuses and mastoid air cells: Clear. Visualized orbits: Bilateral aphakia Cervical spine: Fracture: None. Osseous structures: Multilevel degenerative disc disease changes with endplate spurring and disc oste ophyte complex's. Vertebral alignment: Within normal limits. Spinal canal/Neural Foramina: No evidence of significant spinal canal narrowing. No evidence for sign ificant neural foraminal stenosis. Neck soft tissues: Prevertebral soft tissues are within normal limits. Other: The airway is patent. The lung apices are clear. Facial:There is no evidence of fracture, subluxation, dislocation, or significant soft tissue swellin g. Bilateral aphakia.The temporal-mandibular joints appear symmetric. The visualized portion of the p aranasal sinuses appear clear. IMPRESSION: 1. No acute intracranial process. 2. Nonspecific white matter changes, likely secondary to chronic small vessel ischemic disease. 3. No evidence of cervical spine fracture. 4. Mild to moderate multilevel degenerative disc disease. [facility], , 02/15/2024 2:05 PM
[2024-02-15 14:31] VITALS: BP 185/89; PULSE 61; RESP 20
[2024-02-15] MEDS: DIPH,PERTUS(ACELL)TETVAC-LF 0.5 ML VIAL IM ONE (14:31)
== END 2024-02-15 14:41 | disposition home or self-care (01) ==
LOC: EC 13:24
DX: S00.83XA Contusion of other part of head, initial encounter (principal); Z23 Encounter for immunization; W06.XXXA Fall from bed, initial encounter
CPT/HCPCS: 70450; 70486; 72125; 90471; 90715; 99284

== ENCOUNTER → 2024-04-03 | Outpatient (CLI) | payer MEDICARE ==
[2024-04-03 23:22] LABS: HCT 37.6 % (37.2-46.3); HGB 11.8 g/dL (12.0-15.0); MCH 30.7 pg (27.0-32.0); MCHC 31.4 g/dL (32.0-37.0); MCV 97.9 FL (80.0-97.0); Mean Platelet Volume 11.9 FL (9.5-12.2); NRBC Per 100 WBC 0 X 10*3/uL (0.00-0.01); Platelet Count 186 X 10*3/uL (140-440); RBC 3.84 X 10*6/uL (4.10-5.20); RDW 13.9 % (11.5-14.5); WBC 7.62 X 10*3/uL (4.50-10.00)
[2024-04-04 10:26] LABS: Blood Urea Nitrogen 20.8 mg/dL (9.0-27.0); Carbon Dioxide 25.8 mmol/L (21.6-31.8); Chloride 104 mmol/L (96-109); Potassium 4.9 mmol/L (3.5-5.5); Sodium 138 mmol/L (135-145)
== END | disposition home or self-care (01) ==
LOC: LABPAT 10:04
PROVIDERS: ATTEND Internal Medicine Interventional Cardiology
DX: Z01.812 Encounter for preprocedural laboratory examination (principal); I25.718 Atherosclerosis of autologous vein coronary artery bypass graft(s) with other forms of angina pectoris
CPT/HCPCS: 80051; 82565; 84520; 85027

== ENCOUNTER 2024-04-06 08:46 | Day surgery (SDC) | payer MEDICARE ==
[2024-04-01 16:11] VITALS: BMI 45.5
[~2024-04-06 08:46] MED LIST changes: +ALPRAZolam 0.25 MG TAB PO PRN; +ALPRAZolam 0.5 MG TAB PO PRN; -LACTATED RINGERS 1,000 ML IV SCH; -LIDOCAINE 1% (10MG/ML) FOR IV START INTRADERMA PRN; -MOXIFLOXACIN HCL 0.5% DROPS 3 ML BTL OP PRN; +NITROGLYCERIN SL TABS 0.4 MG TAB SUBLINGUAL PRN; -TETRACAINE 0.5% OPHTH (PF) DROPS 4 ML BTL OP PRN; -TIMOLOL 0.5% OPHTH DROPS 5 ML BTL OP PRN
[2024-04-06] MEDS: ASPIRIN 325 MG TAB PO STA (09:01)
[2024-04-06] MEDS: IV FLUID CONTINUATION 1,000 ML IV ONE ×2 (09:13→12:45)
[2024-04-06] MEDS: SODIUM CHLORIDE 0.9% 1,000 ML in EMPTY BAG 1 BAG IV ONE (09:13)
[2024-04-06] MEDS: amLODIPine 5 MG TAB PO STA (10:21)
[2024-04-06] MEDS: MIDAZOLAM 2 MG/2 ML VIAL IVP ONE (11:12)
[2024-04-06] MEDS: HEPARIN SODIUM,PORCINE 10,000 UNIT in SODIUM CHLORIDE 0.9% 1,000 ML IRRIGATION PRN (11:13)
[2024-04-06] MEDS: HEPARIN SODIUM,PORCINE (1 ML) 2,500 UNIT in SODIUM CHLORIDE 0.9% 250 ML IRRIGATION PRN (11:13)
[2024-04-06] MEDS: LIDOCAINE 1% INJ 10MG/ML (20 ML MDV) SQ ONE (11:16)
[2024-04-06] MEDS: NITROGLYCERIN 1000MCG/10ML SYRINGE INTRACORON ONE (11:24)
[2024-04-06] MEDS: fentaNYL (PF) 50 MCG/1 ML VIAL IVP ONE (11:27)
[2024-04-06] MEDS: HEPARIN SODIUM 1,000 UN/ML (10ML VL) IVP ONE (11:49)
[2024-04-06] MEDS: CLOPIDOGREL 75 MG TAB PO ONE (12:00)
[2024-04-06] MEDS: IOPAMIDOL-370 100ML BTL INJ ONE ×2 (12:06→12:24)
[2024-04-06] MEDS: NITROGLYCERIN SL TABS 0.4 MG TAB SUBLINGUAL ONE (12:16)
[2024-04-06] MEDS ORDERED: RX INFO: IV CONTRAST WAS GIVEN 1 EACH MISC MISCELLANE PRN (12:33)
[2024-04-06] MEDS ORDERED: MAG HYDROX/AL HYDROX/SIMETH 30 ML CUP PO PRN (12:33)
[2024-04-06] MEDS ORDERED: NITROGLYCERIN SL TABS 0.4 MG TAB SUBLINGUAL PRN (12:33)
[2024-04-06] MEDS ORDERED: ATROPINE SULFATE 0.1 MG/ML 10ML SYRINGE IV PRN (12:33)
[2024-04-06] MEDS ORDERED: ZOLPIDEM 5 MG TAB PO PRN (12:33)
[2024-04-06] MEDS: SODIUM CHLORIDE 0.9% 1,000 ML in EMPTY BAG 1 BAG IV SCH (12:45)
--- NOTE | 2024-04-06 14:04 | CC ---
CARDIAC CATHETERIZATION REPORT PROCEDURES PERFORMED: 1. Left heart catheterization and coronary angiography. 2. PTCA and stenting of the major diagonal branch with two drug-eluting stents. 3. Intravascular ultrasound of major diagonal branch, adjunctive procedure. ANESTHESIA: Moderate conscious sedation time was 69 minutes. The patient was administered Versed and fentanyl. Oxygen saturation, hemodynamics, and EKG were monitored closely. CLINICAL INFORMATION: Ms. Padmini Motley is an 83-year-old lady with a known history of CAD, underwent aortocoronary bypass surgery in 2004, because of the ostial LAD lesion. She had a GUILLEN to LAD and a vein graft to the diagonal. The dominant RCA and circumflex are free of significant disease. She also has hypertension, hyperlipidemia, and paroxysmal atrial fibrillation, for which she is on Xarelto. She had symptoms of angina and underwent cardiac catheterization in 2015, which revealed both the GUILLEN to LAD and the vein graft to the diagonal were patent, and she was advised medical therapy. Because of symptoms of exertional shortness of breath and an abnormal stress test, she was advised cardiac cath today. The risks, benefits, options, rationale were explained. The patient understood all details and wished to proceed with the procedure. PROCEDURE NOTE: Under local anesthesia and strict aseptic precautions, a 6-Bulgarian introducer was placed in the right femoral artery using ultrasound guidance. A standard left Tommie catheter was used to perform selective coronary angiography of the left system. A Elif catheter was used to perform selective coronary angiography of the little traverse RCA and vein graft to the diagonal and the GUILLEN injection. GUILLEN was tortuous. I used a Glidewire to get into the subclavian. The pigtail catheter was used to check LV pressures. LV- gram was not performed. The sheath was taken out and Angio-Seal device used to secure hemostasis after the PCI procedure. The patient tolerated the procedure well without complications. CARDIAC CATHETERIZATION FINDINGS: The left ventricular end-diastolic pressure was about 15 mmHg without any gradient across the aortic valve. CORONARY ANGIOGRAPHY FINDINGS: Right coronary artery, technically a large dominant vessel. Minor irregularities. No significant disease, bifurcates into PDA and PLV distally. Left main coronary artery: Very short patent vessel, which has about a 20% disease at the ostium. Bifurcates to LAD and circumflex. Left anterior descending coronary artery: This vessel has moderate disease at the ostium of about 40%. Then, improves the caliber, gives off a diagonal branch, then the diagonal branch independently has two tandem 80% and 90% lesions. The ostium of the diagonal also has about a 50% lesion. The LAD was then totally occluded in the midportion with competitive flow coming from the GUILLEN. Left posterior circumflex coronary artery: Technically a nondominant vessel, gives off a high obtuse marginal, then runs in the AV groove and gives a distal posterolateral branch. Minor irregularities in the circumflex system. No significant disease. Saphenous vein graft to the major diagonal branch. This graft is totally occluded, seen as a stump. Left internal mammary artery graft to LAD: This graft is widely patent at its origin, course, and insertion site. The opacified area of LAD appears small, but has good flow all the way to the apex. No significant disease in the GUILLEN graft. FINAL IMPRESSION: This patient has a right-dominant system. Slightly elevated filling pressures. No gradient. GUILLEN to LAD is patent. [place] dominant RCA as well as nondominant circumflex are widely patent. The major diagonal branch of LAD has two tandem 80% and 90% lesions. The vein graft to the diagonal is totally occluded. RECOMMENDATIONS: I recommended PCI of the major diagonal branch and proceeded to perform the procedure in the same setting. PCI PROCEDURE DETAILS: The patient was given heparin and ACT was about 230, additional 1000 units of heparin was given. The patient received 600 mg of Plavix. She will be on aspirin and Plavix without interruption for 1 year. A standard left Tommie guide catheter was used to cannulate the left coronary artery and a Runthrough wire was used to cross the lesion. A 2.5 caliber 12 mm NC Trek balloon was used to pre-dilate the lesion. I deployed a 2.75 caliber 12 mm long Xience stent distally and another 8 mm stent of same caliber proximal to the previous stent and right at the ostium of the diagonal. Excellent angiographic result was achieved. I then performed intravascular ultrasound and noted that the stent was fully expanded, good apposition, but the reference vessel distally was slightly larger. I, therefore, went with a 3.0 caliber NC Trek balloon of 15 mm length and post-dilated at 14 atmospheres. Excellent angiographic result was achieved. The sheath was taken out and Angio-Seal device was used to secure hemostasis. The patient was sent to the room in a stable condition. The results were discussed with the patient, her , and daughter. I expect her to be discharged tomorrow. This procedure was performed by me on 04/06/2024. CULLEN / GLENNA: [id number] /
[2024-04-06] MEDS: LOSARTAN 50 MG TAB PO STA (14:05)
[2024-04-06] MEDS ORDERED: ACETAMINOPHEN TAB 325 MG TAB PO PRN (14:19)
[2024-04-06] MEDS: ATORVASTATIN 80 MG TAB PO STA (14:29)
[2024-04-06] MEDS: amLODIPine 5 MG TAB PO SCH (15:39)
[2024-04-06] MEDS: ATORVASTATIN 80 MG TAB PO SCH (20:31)
[2024-04-06] MEDS: atenoloL 50 MG TAB PO SCH (20:31)
[2024-04-07 02:39] VITALS: PULSE 53
[2024-04-07 05:43] LABS: Basophils # (A) 0.1 k/uL (0-0.2); Basophils % (A) 1 %; Eosinophils # (A) 0.2 k/uL (0-0.7); Eosinophils % (A) 3 %; HCT 37.4 % (34.0-46.0); Lymphocytes # (A) 0.8 k/uL (1.0-4.8); Lymphocytes % (A) 10 %; MCH 30.3 pg (25.0-35.0); MCV 94.7 fL (80.0-100.0); Mean Platelet Volume 7.9; Monocytes # (A) 0.6 k/uL (0-1.0); Monocytes % (A) 8 %; Neutrophils # (A) 6.1 k/uL (1.3-7.7); Neutrophils % (A) 77 %; Platelet Count 167 k/uL (150-450); RBC 3.95 m/uL (3.80-5.40); RDW 13.3 % (11.5-15.5); WBC 7.9 k/uL (3.8-10.6)
[2024-04-07 06:23] LABS: African American GFR (CKD) 80 (>60 ml/min/1.73 sqM); Anion Gap 3 mmol/L; Blood Urea Nitrogen 15 mg/dL (7-17); Calcium 9.1 mg/dL (8.4-10.2); Carbon Dioxide 28 mmol/L (22-30); Chloride 105 mmol/L (98-107); Glucose 94 mg/dL (74-99); Non-African American GFR(CKD) 69 (>60 ml/min/1.73 sqM); Sodium 136 mmol/L (137-145)
[2024-04-07] MEDS: LEVOTHYROXINE 75 MCG TAB PO SCH (06:29)
[2024-04-07] MEDS: CLOPIDOGREL 75 MG TAB PO SCH (08:09)
[2024-04-07] MEDS: CALCIUM CARB-VIT D 500 MG-5 MCG TAB PO SCH (08:09)
[2024-04-07] MEDS: ASPIRIN 81 MG PO SCH (08:09)
[2024-04-07] MEDS: ISOSORBIDE MONONITRATE ER 30 MG TAB.ER.24H PO SCH (08:09)
[2024-04-07] MEDS: LOSARTAN 50 MG TAB PO SCH (08:10)
--- NOTE | 2024-04-07 08:15 | P.DS ---
Providers Date of admission: DISCHARGE DIAGNOSES: 1. 01 unstable angina, CAD with prior bypass surgery, hypertension, hypercholesterolemia, obesity, paroxysmal atrial fibrillation PROCEDURES: 1. 01 left heart catheterization, coronary angiography, selective injection of bypass grafts, PTCA and stenting of major diagonal branch with drug-eluting stents and intravascular ultrasound HISTORY OF PRESENTATION: 0 this patient has history of CAD prior bypass surgery in 2004 with a GUILLEN to LAD and a vein graft to the diagonal. Dominant RCA and circumflex were not grafted. In 2015 both the grafts were patent. Because of increasing shortness of breath and abnormal stress test she was brought in for a cardiac catheterization. Procedure was performed and noted that the vein graft to the diagonal was occluded. The [place] diagonal was stented with intravascular ultrasound 2 drug-eluting stents were deployed excellent angiographic result was achieved. 3 HOSPITAL COURSE: 04 post PCI procedure course was uneventful patient's blood pressure was slightly elevated amlodipine 5 mg daily and losartan was increased to 100 mg daily. Blood pressure is acceptable this morning. The EKG and lab work are unremarkable. EKG revealed sinus mechanism with nonspecific ST-T changes. Renal function hemoglobin platelet count is good. Right femoral site is clean and dry with good pulse. Vital signs are stable S1-S2 heard normally lungs are clear abdomen and lower extremities times unremarkable. DISCHARGE MEDICATIONS: 0 please see the discharge note for other medications. She will be on aspirin, Plavix, resume rosuvastatin at home, amlodipine 5 mg daily losartan 100 mg daily. Discharge instructions were given 5 FOLLOW-UP: patient will be seen in the office on 13 April at 2 PM. Discharge instructions regarding activity diet medications were given. 6 Expected date of discharge: 04/07/24 Attending physician: Glenda Aguirre Consults: 04/06/24 12:33 Consult Physician Routine Consulting Provider: [facility] Consult Reason/Comments: Post Interventional Patient Do you want consulting provider notified?: Already Contacted Primary care physician: Heri Zapata Plan - Discharge Summary Discharge Rx Participant: No New Discharge Prescriptions: No Action Levothyroxine Sodium [Synthroid] 75 mcg PO AC-BRKFST atenoloL [Tenormin] 50 mg PO HS #60 tab Acetaminophen Tab [Tylenol] 650 mg PO Q6HR PRN tab PRN Reason: Fever And/ Or Pain Losartan Potassium 25 mg PO BID Rosuvastatin Calcium 20 mg PO HS Isosorbide Mononitrate 30 tab PO DAILY Rivaroxaban [Xarelto] 20 mg PO W/SUPPER Calcium Carbonate/Vitamin D3 [Calcium 500Mg-Vit D3 15 mcg (600 unit)] 1 tab PO Q2D Discharge Medication List Levothyroxine Sodium [Synthroid] 75 mcg PO AC-BRKFST 06/07/15 [History] atenoloL [Tenormin] 50 mg PO HS #60 tab 10/03/17 [Rx] Rivaroxaban [Xarelto] 20 mg PO W/SUPPER 12/20/21 [History] Acetaminophen Tab [Tylenol] 650 mg PO Q6HR PRN tab 12/21/21 [Rx] Calcium Carbonate/Vitamin D3 [Calcium 500Mg-Vit D3 15 mcg (600 unit)] 1 tab PO Q2D 01/06/23 [History] Losartan Potassium 25 mg PO BID 01/06/23 [History] Isosorbide Mononitrate 30 tab PO DAILY 04/01/24 [History] Rosuvastatin Calcium 20 mg PO HS 04/01/24 [History] Follow up Appointment(s)/Referral(s): Glenda Aguirre MD [STAFF PHYSICIAN] - 04/13/24 2:00 pm (at the [facility] in [facility])
[2024-04-07 08:20] VITALS: BP 167/66; RESP 16; TEMP 97.9
[2024-04-07] MEDS ORDERED: RIVAROXABAN 20 MG TAB PO SCH (17:30)
== END 2024-04-07 10:23 | disposition home or self-care (01) ==
LOC: CATHCVL 08:46 → 6NMEDSUR 12:24 → CATHCVL 04-07 10:23
PROVIDERS: ATTEND Internal Medicine Interventional Cardiology
DX: I25.110 Atherosclerotic heart disease of native coronary artery with unstable angina pectoris (principal); I48.0 Paroxysmal atrial fibrillation; E66.9 Obesity, unspecified; E78.00 Pure hypercholesterolemia, unspecified; I10 Essential (primary) hypertension; Z79.01 Long term (current) use of anticoagulants; Z79.899 Other long term (current) drug therapy
CPT/HCPCS: 92978; 93459; 80048; 85025; C1769 ×4; C9600; C1760; C1894; C1753; C1874 ×2; C1725 ×2; C1887; J2250; J1644 ×3; J2003; Q9967; J3010; J2305

== ENCOUNTER → 2024-07-01 | Outpatient (CLI) | payer MEDICARE ==
--- NOTE | 2024-07-01 13:48 | MM ---
Reason for Exam: Screening (asymptomatic). Last mammogram was performed 2 year(s) and 1 month(s) ago. Patient History: Menarche at age 11. First Full-Term at age 24. Left ovary removed at age 69. Right ovary removed at age 69. Hysterectomy at age 69. Postmenopausal. Endometrial cancer, age 69. Sister had breast cancer, age 50. Sister had breast cancer, age 50. Sister had breast cancer, age 50. Mother had breast cancer, age 50. Risk Values: Joy 5 year model risk: 6.9%. NCI Lifetime model risk: 9.1%. Prior Study Comparison: 07/22/2017 Bilateral Screening Mammogram, [facility]. 04/28/2019 Bilateral Screening Mammogram, [facility]. 05/29/2022 Bilateral MG 3D screening mammo w/cad, [facility]. Tissue Density: There are scattered areas of fibroglandular density. Findings: Analyzed By CAD. There is no suspicious group of microcalcifications or new suspicious mass in either breast. Overall Assessment: Negative, BI-RAD 1 Management: Screening Mammogram of both breasts in 1 year. . Patient should continue monthly self-breast exams. A clinical breast exam by your physician is recommended on an annual basis. This exam should not preclude additional follow-up of suspicious palpable abnormalities. Note on Joy scores and lifetime risk: 1. A Joy score greater than 3% is considered moderate risk. If this is the case, consider specialist referral to assess eligibility for a risk reducing agent. 2. If overall lifetime risk for the development of breast cancer is 20% or higher, the patient may qualify for future screening with alternating mammogram and breast MRI. [facility], , 07/01/2024 1:44 PM. Electronically signed and approved by: Tyler Holt M.D. Radiologis
--- NOTE | 2024-07-01 14:51 | BD ---
EXAMINATION TYPE: Axial Bone Density DATE OF EXAM: 07/01/2024 CLINICAL HISTORY: 83 years old Female. ICD-10 CODE: Z78.[address] , Additional History: Height: 61.5 Weight: 230.8 FRAX RISK QUESTIONS: Alcohol (3 or more units per day): no Family History (Parent hip fracture): no Glucocorticoids (More than 3mos): no (Ex: prednisone, prednisolone, methylprednisolone, dexamethasone, and hydrocortisone). History of Fracture in Adulthood: no Secondary Osteoporosis: no 1. Type 1 Diabetes: no 2. Hyperthyroidism: no 3. Menopause before 45: no 4. Malnutrition: no 5. Chronic liver disease: no Rheumatoid Arthritis: no Current Tobacco Use: no RISK FACTORS HISTORY OF: Surgery to Spine/Hip(right/left)/Wrist (right/left): no When: MEDICATIONS: Thyroid Medications: yes How Lon years EXAM MEASUREMENTS: Bone mineral densitometry was performed using the [employer] System. Bone mineral density as measured about the Lumbar spine is: ----- L1-L4(G/cm2): 1.317 T Score Values are as follows: ----- L1: 0.4 ----- L2: 1.3 ----- L3: 0.7 ----- L4: 2.2 ----- L1-L4: 1.1 Z Score Values are as follows: ----- L1: 1.2 ----- L2: 2.0 ----- L3: 1.4 ----- L4: 2.9 ----- L1-L4: 1.9 Bone mineral density has: decreased -4.6% since study of: 05.29.2022 Bone mineral density about the R hip (g/cm2): 0.881 Bone mineral density about the L hip (g/cm2): 0.873 T Score values are as follows: -----R Neck: -1.8 -----L Neck: -2.2 -----R Total: -1.0 -----L Total: -1.1 Z Score values are as follows: -----R Neck: -0.3 -----L Neck: -0.6 -----R Total: 0.3 -----L Total: 0.3 Bone mineral density has: decreased -10.3 % since study of: 3..2022 FRAX%s: The graph provided illustrates a 14.3% chance for a major osteoporotic fx and a 4.4% chance f or the hips probability for fx in 10 years time. IMPRESSION: Osteopenia (T Score between -2.5 and -1). There is slightly increased risk of fracture and the patient may be considered for treatment. Re-Screen 2-5 years. NOTE: T-SCORE=SD OF THE YOUNG ADULT MEAN. [facility], , 07/01/2024 2:49 PM
== END | disposition home or self-care (01) ==
LOC: RADMAMWWP 13:06
PROVIDERS: ATTEND Internal Medicine Geriatric Medicine
DX: Z12.31 Encounter for screening mammogram for malignant neoplasm of breast (principal); R92.323 Mammographic fibroglandular density, bilateral breasts; M85.89 Other specified disorders of bone density and structure, multiple sites; Z78.0 Asymptomatic menopausal state; Z80.3 Family history of malignant neoplasm of breast
CPT/HCPCS: 77063; 77067; 77080

== ENCOUNTER → 2024-07-27 | Outpatient (CLI) | payer MEDICARE ==
--- NOTE | 2024-07-27 16:24 | XR ---
EXAMINATION TYPE: XR knee complete 3 views LT DATE OF EXAM: 07/27/2024 4:19 PM COMPARISON: none CLINICAL INDICATION: Female, 84 years old with history of M25.562 PAIN IN LEFT KNEE; PHH, pain FINDINGS: There is mild tricompartmental degenerative spurring. Possible small suprapatellar joint effusion. Ex tensor mechanism appears intact. Anterior soft tissue swelling likely related to body habitus. There is osteopenia. No acute fracture, subluxation, dislocation. IMPRESSION: At least mild tricompartmental osteoarthrosis. There may be a small knee joint effusion. Osteopenia. No acute osseous abnormality seen. [facility], Workstation: [facility], 07/27/2024 4:22 PM
== END | disposition home or self-care (01) ==
LOC: RADXRMAIN 16:02
PROVIDERS: ATTEND Registered Nurse Gerontology
DX: M17.12 Unilateral primary osteoarthritis, left knee (principal); M85.862 Other specified disorders of bone density and structure, left lower leg

== ENCOUNTER → 2024-09-22 | Outpatient (CLI) | payer MEDICARE ==
[2024-09-22 15:10] LABS: HCT 40.5 % (37.2-46.3); HGB 12.7 g/dL (12.0-15.0); MCH 29.2 pg (27.0-32.0); MCHC 31.4 g/dL (32.0-37.0); MCV 93.1 FL (80.0-97.0); NRBC Per 100 WBC 0 X 10*3/uL (0.00-0.01); Platelet Count 215 X 10*3/uL (140-440); RBC 4.35 X 10*6/uL (4.10-5.20); RDW 13.9 % (11.5-14.5); WBC 6.66 X 10*3/uL (4.50-10.00)
[2024-09-22 15:37] LABS: ALT 9 U/L (8-44); AST 16 U/L (13-35); Albumin 3.8 g/dL (3.8-4.9); Albumin/Globulin Ratio 1.90 Ratio (1.60-3.17); Alkaline Phosphatase 89 U/L (41-126); Anion Gap 11.90 mmol/L (4.00-12.00); BUN/Creat Ratio 20.62 Ratio (12.00-20.00); Blood Urea Nitrogen 26.8 mg/dL (9.0-27.0); Calcium 9.5 mg/dL (8.7-10.3); Carbon Dioxide 26.1 mmol/L (21.6-31.8); Chloride 104 mmol/L (96-109); Cholesterol 164.00 mg/dL (0.00-200.00); Globulin 2.0 g/dL (1.6-3.3); Glucose 90 mg/dL (70-110); HDL Cholesterol 67.80 mg/dL (40.00-60.00); LDL Cholesterol,Calculated 80.2 mg/dL (0.0-131.0); Potassium 4.2 mmol/L (3.5-5.5); Sodium 142 mmol/L (135-145); Total Protein 5.8 g/dL (6.2-8.2); Triglycerides 80.10 mg/dL (0.00-149.00); VLDL Calculation 16.02 mg/dL (5.00-40.00)
== END | disposition home or self-care (01) ==
LOC: LABWHC1 08:47
PROVIDERS: ATTEND Student in an Organized Health Care Education/Training Program
DX: E11.22 Type 2 diabetes mellitus with diabetic chronic kidney disease (principal); E03.9 Hypothyroidism, unspecified; I50.9 Heart failure, unspecified; N18.9 Chronic kidney disease, unspecified
CPT/HCPCS: 36415; 80053; 80061; 83036; 84443; 85027